=== PATIENT | male | born 1935 | race Caucasian/White ===

== ENCOUNTER → 2016-05-09 | Outpatient (CLI) | payer MEDICARE ==
[~2016-05-09] MED LIST: ASPIRIN81 M1 PO; COUMADIN2.5 MG PO; COUMADIN5 M2 PO; Diltiazem180 MG PO; FLOMAX0.4 MG PO; LIPITOR10 MG PO; LIPITOR20 MG PO; MIRALAX POWDER255 G1 PO; MOTRIN600 MG PO; NATURE'S BLEND F1 MG PO; NITROSTAT0.4 MG SL; NORVASC2.5 MG PO; PSYLLIUM SEED480 GM PO; SORINE PO; Synthroid,Levo75 MCG PO; VICODIN 5/500 505 MG PO; VITAMIN D32000 UNIT PO; WARFARIN2 MG PO; XANAX0.25 MG PO; ZOFRAN8 M1 PO
[2016-05-09 13:34] LABS: PROTHROMBIN TIME 22.1 SECONDS (9.0-12.4)
== END | disposition home or self-care (01) ==
LOC: LAB 12:34
PROVIDERS: Family Medicine
DX: I48.0 Paroxysmal atrial fibrillation (principal); C82.09 Follicular lymphoma grade I, extranodal and solid organ sites; R91.8 Other nonspecific abnormal finding of lung field; I21.29 ST elevation (STEMI) myocardial infarction involving other sites

== ENCOUNTER → 2016-07-12 | Outpatient (CLI) | payer MEDICARE ==
[2016-07-12 08:04] LABS: INTERNATIONAL NORM RATIO 2.1 (2.0-3.5); PROTHROMBIN TIME 23.2 SECONDS (9.0-12.4)
== END | disposition home or self-care (01) ==
LOC: LAB 07:20
PROVIDERS: Family Medicine
DX: C82.09 Follicular lymphoma grade I, extranodal and solid organ sites (principal); I48.0 Paroxysmal atrial fibrillation; I10 Essential (primary) hypertension; I21.3 ST elevation (STEMI) myocardial infarction of unspecified site; R91.8 Other nonspecific abnormal finding of lung field

== ENCOUNTER → 2016-08-11 | Outpatient (CLI) | payer MEDICARE ==
[2016-08-11 08:30] LABS: BASO % 0.9 % (0.0-1.0); EOS # 0.2 10*3/uL (0.0-0.4); EOS % 4.8 % (1.0-4.0); HEMATOCRIT 41.9 % (42.0-52.0); HEMOGLOBIN 14.3 g/dl (14.0-18.0); LYMPH # 0.3 10*3/uL (1.3-4.4); LYMPH % 7.1 % (27.0-41.0); MEAN CELL VOLUME 92.1 fl (80.0-94.0); MEAN CORPUSCULAR HGB 31.4 pg (27.0-31.0); MEAN CORPUSCULAR HGB CONC 34.1 g/dl (33.0-37.0); MEAN PLATELET VOLUME 9.4 fl (9.6-12.3); MONO # 0.6 10*3/uL (0.1-1.0); MONO % 16.5 % (3.0-9.0); NEUT # 2.5 10*3/uL (2.3-7.9); NEUT % 70.1 % (47.0-73.0); PLATELET COUNT AUTOMATED 138 10*3/uL (130-400); RED BLOOD COUNT 4.55 10*6/uL (4.50-5.90); RED CELL DISTRI WIDTH 13.3 % (0-14.5); WHITE BLOOD COUNT 3.5 10*3/uL (4.8-10.8)
[2016-08-11 08:56] LABS: INTERNATIONAL NORM RATIO 1.9 (2.0-3.5); PROTHROMBIN TIME 20.7 SECONDS (9.0-12.4)
[2016-08-11 09:00] LABS: ALBUMIN 3.9 gm/dl (3.1-4.5); BILIRUBIN, TOTAL 0.7 mg/dl (0.2-1.0); BUN 19 mg/dl (7-24); CARBON DIOXIDE 25 mmol/L (21-32); CHLORIDE 109 mmol/L (98-107); GLUCOSE 87 mg/dL (65-99); POTASSIUM 4.1 mmol/L (3.5-5.1); SODIUM 143 mmol/L (136-145)
[2016-08-11 09:08] LABS: ALKALINE PHOSPHATASE 104 U/L (45-117); CHOLESTEROL 147 mg/dL (<200); CPK 106 U/L (39-308); EST GLOM FILT AFRICAN AMERICAN > 60 ml/min; HDL CHOLESTEROL 41 mg/dl (40-60); LDH 273 U/L (87-241); LDL CHOLESTEROL 79 mg/dL (9-159); SGOT/AST 31 IU/L (3-35); SGPT/ALT 31 U/L (12-78); TOTAL PROTEIN 6.9 gm/dL (6.4-8.2); TRIGLYCERIDES 134 mg/dl (<150); URIC ACID 7.5 mg/dL (3.5-7.2); VLDL CHOLESTEROL 27 mg/dL (6-40)
[2016-08-12 06:10] LABS: TOTAL PROTEIN, SERUM 6.6 g/dL (6.0-8.5)
[2016-08-14 15:09] LABS: A/G RATIO 1.6 (0.7-1.7); ALBUMIN 4.1 g/dL (2.9-4.4); ALPHA-1-GLOBULIN 0.2 g/dL (0.0-0.4); BETA GLOBULIN 0.9 g/dL (0.7-1.3); GAMMA GLOBULIN 0.5 g/dL (0.4-1.8); GLOBULIN, TOTAL 2.5 g/dL (2.2-3.9); M-SPIKE Not Observed g/dL (Not Observed)
== END | disposition home or self-care (01) ==
LOC: LAB 07:55
PROVIDERS: Internal Medicine Medical Oncology
DX: C82.09 Follicular lymphoma grade I, extranodal and solid organ sites (principal); E78.00 Pure hypercholesterolemia, unspecified; E03.9 Hypothyroidism, unspecified; I48.0 Paroxysmal atrial fibrillation

== ENCOUNTER 2016-09-17 08:49 | Emergency (ER) | payer MEDICARE ==
[~2016-09-17] VITALS: Ht 175.2 cm; Wt 86.2 kg
[2016-09-17] MEDS ORDERED: BETAPACE PO (09:03)
== END 2016-09-17 11:00 | disposition home or self-care (01) ==
LOC: ED 08:49
DX: S90.32XA Contusion of left foot, initial encounter (principal); Z98.890 Other specified postprocedural states; Z90.89 Acquired absence of other organs; Z79.899 Other long term (current) drug therapy; Z79.82 Long term (current) use of aspirin; Z88.1 Allergy status to other antibiotic agents; Z79.01 Long term (current) use of anticoagulants; W18.09XA Striking against other object with subsequent fall, initial encounter; Y93.89 Activity, other specified; Y92.89 Other specified places as the place of occurrence of the external cause; Y99.9 Unspecified external cause status

== ENCOUNTER → 2016-10-12 | Outpatient (CLI) | payer MEDICARE ==
[~2016-10-12] MED LIST changes: +BETAPACE PO
[2016-10-12 10:53] LABS: INTERNATIONAL NORM RATIO 2.4 (2.0-3.5); PROTHROMBIN TIME 26.8 SECONDS (9.0-12.4)
== END | disposition home or self-care (01) ==
LOC: LAB 09:09
PROVIDERS: Family Medicine
DX: I48.0 Paroxysmal atrial fibrillation (principal)

== ENCOUNTER → 2016-11-06 | Outpatient (CLI) | payer MEDICARE ==
[2016-11-06 09:14] LABS: FREE T4 1.01 ng/dl (0.76-1.46); INTERNATIONAL NORM RATIO 2.7 (2.0-3.5); PROTHROMBIN TIME 30.5 SECONDS (9.0-12.4); THYROID STIM HORMONE (HS) 1.99 uIU/ml (0.358-4.75)
== END | disposition home or self-care (01) ==
LOC: LAB 08:11
PROVIDERS: Family Medicine; Internal Medicine Endocrinology, Diabetes & Metabolism
DX: I48.0 Paroxysmal atrial fibrillation (principal); E04.1 Nontoxic single thyroid nodule; E89.0 Postprocedural hypothyroidism

== ENCOUNTER → 2016-12-19 | Outpatient (CLI) | payer MEDICARE ==
[2016-12-19 08:56] LABS: BASO % 0.4 % (0.0-1.0); EOS # 0.3 10*3/uL (0.0-0.4); EOS % 5.4 % (1.0-4.0); HEMATOCRIT 43.2 % (42.0-52.0); HEMOGLOBIN 14.2 g/dl (14.0-18.0); LYMPH # 0.4 10*3/uL (1.3-4.4); LYMPH % 6.8 % (27.0-41.0); MEAN CELL VOLUME 93.5 fl (80.0-94.0); MEAN CORPUSCULAR HGB 30.7 pg (27.0-31.0); MEAN CORPUSCULAR HGB CONC 32.9 g/dl (33.0-37.0); MEAN PLATELET VOLUME 9.8 fl (9.6-12.3); MONO # 0.8 10*3/uL (0.1-1.0); MONO % 15.2 % (3.0-9.0); NEUT # 3.7 10*3/uL (2.3-7.9); NEUT % 71.6 % (47.0-73.0); PLATELET COUNT AUTOMATED 151 10*3/uL (130-400); RED BLOOD COUNT 4.62 10*6/uL (4.50-5.90); RED CELL DISTRI WIDTH 13.2 % (0-14.5); WHITE BLOOD COUNT 5.1 10*3/uL (4.8-10.8)
[2016-12-19 09:25] LABS: ALBUMIN 3.7 gm/dl (3.1-4.5); BUN 24 mg/dl (7-24); CHLORIDE 106 mmol/L (98-107); LDH 258 U/L (87-241); POTASSIUM 4.1 mmol/L (3.5-5.1); SGOT/AST 27 IU/L (3-35); SGPT/ALT 28 U/L (12-78); SODIUM 139 mmol/L (136-145); TOTAL PROTEIN 6.8 gm/dL (6.4-8.2); URIC ACID 7.2 mg/dL (3.5-7.2)
[2016-12-19 09:26] LABS: ALKALINE PHOSPHATASE 114 U/L (45-117)
[2016-12-19 11:16] LABS: INTERNATIONAL NORM RATIO 2.3 (2.0-3.5)
[2016-12-20 17:10] LABS: A/G RATIO 1.7 (0.7-1.7); ALPHA-1-GLOBULIN 0.2 g/dL (0.0-0.4); ALPHA-2-GLOBULIN 0.8 g/dL (0.4-1.0); BETA GLOBULIN 0.9 g/dL (0.7-1.3); GAMMA GLOBULIN 0.5 g/dL (0.4-1.8); GLOBULIN, TOTAL 2.3 g/dL (2.2-3.9); M-SPIKE Not Observed g/dL (Not Observed); TOTAL PROTEIN, SERUM 6.3 g/dL (6.0-8.5)
[2016-12-21 07:06] LABS: BETA-2 MICROGLOBULIN 010181 2.2 mg/L (0.6-2.4)
== END | disposition home or self-care (01) ==
LOC: LAB 08:25
PROVIDERS: Internal Medicine Medical Oncology
DX: C82.00 Follicular lymphoma grade I, unspecified site (principal); I48.0 Paroxysmal atrial fibrillation

== ENCOUNTER → 2017-01-15 | Outpatient (CLI) | payer MEDICARE ==
[2017-01-15 13:40] LABS: INTERNATIONAL NORM RATIO 2.5 (2.0-3.5)
[2017-01-15 13:47] LABS: THYROID STIM HORMONE (HS) 1.85 uIU/ml (0.358-4.75)
== END | disposition home or self-care (01) ==
LOC: LAB 12:49
PROVIDERS: Family Medicine
DX: Z12.5 Encounter for screening for malignant neoplasm of prostate (principal); E78.00 Pure hypercholesterolemia, unspecified; E03.9 Hypothyroidism, unspecified; I48.0 Paroxysmal atrial fibrillation

== ENCOUNTER → 2017-02-19 | Outpatient (CLI) | payer MEDICARE ==
[2017-02-19 10:46] LABS: BASO % 0.4 % (0.0-1.0); EOS # 0.3 10*3/uL (0.0-0.4); EOS % 4.8 % (1.0-4.0); HEMATOCRIT 40.3 % (42.0-52.0); HEMOGLOBIN 13.9 g/dl (14.0-18.0); LYMPH # 0.3 10*3/uL (1.3-4.4); LYMPH % 4.5 % (27.0-41.0); MEAN CELL VOLUME 91.4 fl (80.0-94.0); MEAN CORPUSCULAR HGB 31.5 pg (27.0-31.0); MEAN CORPUSCULAR HGB CONC 34.5 g/dl (33.0-37.0); MEAN PLATELET VOLUME 10.4 fl (9.6-12.3); MONO # 0.7 10*3/uL (0.1-1.0); MONO % 12.7 % (3.0-9.0); NEUT # 4.3 10*3/uL (2.3-7.9); NEUT % 76.7 % (47.0-73.0); PLATELET COUNT AUTOMATED 147 10*3/uL (130-400); RED BLOOD COUNT 4.41 10*6/uL (4.50-5.90); RED CELL DISTRI WIDTH 13.4 % (0-14.5); WHITE BLOOD COUNT 5.6 10*3/uL (4.8-10.8)
[2017-02-19 11:15] LABS: INTERNATIONAL NORM RATIO 2.5 (2.0-3.5)
[2017-02-19 11:16] LABS: ALBUMIN 3.7 gm/dl (3.1-4.5); ALKALINE PHOSPHATASE 109 U/L (45-117); BUN 22 mg/dl (7-24); CHLORIDE 105 mmol/L (98-107); CREATININE 1.16 mg/dL (0.70-1.30); POTASSIUM 3.8 mmol/L (3.5-5.1); SGOT/AST 29 IU/L (3-35); SGPT/ALT 40 U/L (12-78); SODIUM 138 mmol/L (136-145)
[2017-02-19 11:17] LABS: LDH 307 U/L (87-241)
== END | disposition home or self-care (01) ==
LOC: LAB 10:01
PROVIDERS: Family Medicine; Internal Medicine Medical Oncology
DX: C82.09 Follicular lymphoma grade I, extranodal and solid organ sites (principal); I48.0 Paroxysmal atrial fibrillation

== ENCOUNTER → 2017-03-26 | Outpatient (CLI) | payer MEDICARE ==
[2017-03-26 15:33] LABS: INTERNATIONAL NORM RATIO 2.3 (2.0-3.5)
== END | disposition home or self-care (01) ==
LOC: LAB 14:38
PROVIDERS: Family Medicine
DX: I48.0 Paroxysmal atrial fibrillation (principal)

== ENCOUNTER 2017-04-18 10:07 | Emergency (ER) | payer MEDICARE ==
[~2017-04-18] VITALS: Ht 177.8 cm; Wt 86.6 kg
[2017-04-18] MEDS ORDERED: CARDIZEM CD180 MG PO (10:17)
[2017-04-18 10:52] LABS: BASO % 0.2 % (0.0-1.0); EOS # 0.1 10*3/uL (0.0-0.4); EOS % 2.1 % (1.0-4.0); HEMATOCRIT 36.8 % (42.0-52.0); HEMOGLOBIN 12.4 g/dl (14.0-18.0); LYMPH # 0.3 10*3/uL (1.3-4.4); LYMPH % 4.5 % (27.0-41.0); MEAN CELL VOLUME 93.6 fl (80.0-94.0); MEAN CORPUSCULAR HGB 31.6 pg (27.0-31.0); MEAN CORPUSCULAR HGB CONC 33.7 g/dl (33.0-37.0); MEAN PLATELET VOLUME 9.1 fl (9.6-12.3); MONO # 0.8 10*3/uL (0.1-1.0); MONO % 14.6 % (3.0-9.0); NEUT # 4.4 10*3/uL (2.3-7.9); NEUT % 76.3 % (47.0-73.0); PLATELET COUNT AUTOMATED 209 10*3/uL (130-400); RED BLOOD COUNT 3.93 10*6/uL (4.50-5.90); RED CELL DISTRI WIDTH 13.3 % (0-14.5); WHITE BLOOD COUNT 5.8 10*3/uL (4.8-10.8)
[2017-04-18 11:08] LABS: ALBUMIN 3.2 gm/dl (3.1-4.5); ALKALINE PHOSPHATASE 88 U/L (45-117); BUN 22 mg/dl (7-24); CHLORIDE 104 mmol/L (98-107); CREATININE 1.09 mg/dL (0.70-1.30); POTASSIUM 3.8 mmol/L (3.5-5.1); SGOT/AST 25 IU/L (3-35); SGPT/ALT 30 U/L (12-78); SODIUM 137 mmol/L (136-145); TOTAL PROTEIN 6.5 gm/dL (6.4-8.2)
[2017-04-18 12:07] LABS: BILIRUBIN NEGATIVE (NEGATIVE); BLOOD NEGATIVE (NEGATIVE); CLARITY CLEAR (CLEAR); COLOR YELLOW (YELLOW); GLUCOSE NEGATIVE (NEGATIVE); KETONE NEGATIVE (NEGATIVE); NITRITE NEGATIVE (NEGATIVE); UROBILINOGEN 0.2 E.U./dl (0.2-1.0)
[2017-04-18 12:26] LABS: LEUKO ESTERASE NEGATIVE (NEGATIVE); PH 5.5 (5.0-9.0); SPECIFIC GRAVITY 1.015 (1.005-1.030)
[2017-04-18 12:49] LABS: BACTERIA TRACE; EPITHELIAL CELLS 0-2; MUCOUS 1+
== END 2017-04-18 12:42 | disposition home or self-care (01) ==
LOC: ED 10:07
PROVIDERS: Emergency Medicine
DX: R19.7 Diarrhea, unspecified (principal); Z98.890 Other specified postprocedural states; Z90.89 Acquired absence of other organs; Z79.899 Other long term (current) drug therapy; Z88.1 Allergy status to other antibiotic agents; Z79.82 Long term (current) use of aspirin; Z79.01 Long term (current) use of anticoagulants

== ENCOUNTER → 2017-04-19 | Outpatient (CLI) | payer MEDICARE ==
[~2017-04-19] MED LIST changes: +CARDIZEM CD180 MG PO
== END | disposition home or self-care (01) ==
LOC: LAB 10:43
DX: K52.9 Noninfective gastroenteritis and colitis, unspecified (principal)

== ENCOUNTER → 2017-04-23 | Outpatient (CLI) | payer MEDICARE ==
[~2017-04-23] MED LIST changes: +VANCOMYCIN HCL125 MG PO
== END | disposition home or self-care (01) ==
LOC: RESCLI 14:44
DX: A04.72 Enterocolitis due to Clostridium difficile, not specified as recurrent (principal); R51 Headache; I25.119 Atherosclerotic heart disease of native coronary artery with unspecified angina pectoris; I10 Essential (primary) hypertension; E03.9 Hypothyroidism, unspecified; I48.91 Unspecified atrial fibrillation; E55.9 Vitamin D deficiency, unspecified; E53.8 Deficiency of other specified B group vitamins; Z88.1 Allergy status to other antibiotic agents

== ENCOUNTER 2017-04-24 13:22 | Emergency (ER) | payer MEDICARE ==
[~2017-04-24] VITALS: Ht 175.2 cm; Wt 86.2 kg
[~2017-04-24 13:22] MED LIST changes: -VANCOMYCIN HCL125 MG PO
[2017-04-24] MEDS ORDERED: VANCOMYCIN HCL125 MG PO (13:45)
[2017-04-24 14:30] LABS: BASO % 0.6 % (0.0-1.0); EOS # 0.1 10*3/uL (0.0-0.4); HEMATOCRIT 37.9 % (42.0-52.0); HEMOGLOBIN 12.7 g/dl (14.0-18.0); LYMPH # 0.3 10*3/uL (1.3-4.4); LYMPH % 5.9 % (27.0-41.0); MEAN CORPUSCULAR HGB 30.8 pg (27.0-31.0); MEAN CORPUSCULAR HGB CONC 33.5 g/dl (33.0-37.0); MEAN PLATELET VOLUME 9.1 fl (9.6-12.3); MONO # 0.8 10*3/uL (0.1-1.0); MONO % 14.2 % (3.0-9.0); NEUT # 4.1 10*3/uL (2.3-7.9); NEUT % 76.2 % (47.0-73.0); PLATELET COUNT AUTOMATED 221 10*3/uL (130-400); RED BLOOD COUNT 4.12 10*6/uL (4.50-5.90); RED CELL DISTRI WIDTH 13.8 % (0-14.5); WHITE BLOOD COUNT 5.4 10*3/uL (4.8-10.8)
[2017-04-24 14:49] LABS: ALBUMIN 3.1 gm/dl (3.1-4.5); ALKALINE PHOSPHATASE 85 U/L (45-117); BUN 15 mg/dl (7-24); CHLORIDE 101 mmol/L (98-107); CREATININE 1.13 mg/dL (0.70-1.30); LIPASE 264 U/L (73-393); POTASSIUM 4.2 mmol/L (3.5-5.1); SGOT/AST 66 IU/L (3-35); SGPT/ALT 59 U/L (12-78); SODIUM 137 mmol/L (136-145); TOTAL PROTEIN 6.2 gm/dL (6.4-8.2)
[2017-04-24 15:24] LABS: INTERNATIONAL NORM RATIO 6.6 (2.0-3.5)
[2017-04-24 15:37] LABS: BILIRUBIN NEGATIVE (NEGATIVE); BLOOD TRACE-INTACT (NEGATIVE); CLARITY SL CLOUDY (CLEAR); COLOR YELLOW (YELLOW); GLUCOSE NEGATIVE (NEGATIVE); KETONE NEGATIVE (NEGATIVE); LEUKO ESTERASE NEGATIVE (NEGATIVE); NITRITE NEGATIVE (NEGATIVE); SPECIFIC GRAVITY <= 1.005 (1.005-1.030); UROBILINOGEN 0.2 E.U./dl (0.2-1.0)
[2017-04-24 15:51] LABS: BACTERIA TRACE
== END 2017-04-24 16:51 | disposition short-term general hospital (02) ==
LOC: ED 13:22
PROVIDERS: Nurse Practitioner Family
DX: I62.00 Nontraumatic subdural hemorrhage, unspecified (principal); Z79.82 Long term (current) use of aspirin; Z79.899 Other long term (current) drug therapy; Z79.01 Long term (current) use of anticoagulants; Z88.1 Allergy status to other antibiotic agents; Z98.890 Other specified postprocedural states

== ENCOUNTER → 2017-05-11 | Outpatient (CLI) | payer MEDICARE ==
[~2017-05-11] MED LIST changes: +VANCOMYCIN HCL125 MG PO
[2017-05-11 10:12] LABS: BASO % 0.8 % (0.0-1.0); EOS # 0.3 10*3/uL (0.0-0.4); HEMOGLOBIN 13.2 g/dl (14.0-18.0); LYMPH # 0.3 10*3/uL (1.3-4.4); LYMPH % 6.2 % (27.0-41.0); MEAN CELL VOLUME 93.3 fl (80.0-94.0); MEAN CORPUSCULAR HGB 31.6 pg (27.0-31.0); MEAN CORPUSCULAR HGB CONC 33.8 g/dl (33.0-37.0); MEAN PLATELET VOLUME 9.7 fl (9.6-12.3); MONO # 0.7 10*3/uL (0.1-1.0); MONO % 12.7 % (3.0-9.0); NEUT # 3.9 10*3/uL (2.3-7.9); NEUT % 74.1 % (47.0-73.0); PLATELET COUNT AUTOMATED 210 10*3/uL (130-400); RED BLOOD COUNT 4.18 10*6/uL (4.50-5.90); RED CELL DISTRI WIDTH 13.9 % (0-14.5); WHITE BLOOD COUNT 5.2 10*3/uL (4.8-10.8)
[2017-05-11 10:43] LABS: ALBUMIN 3.5 gm/dl (3.1-4.5); ALKALINE PHOSPHATASE 103 U/L (45-117); BUN 19 mg/dl (7-24); CHLORIDE 105 mmol/L (98-107); LDH 262 U/L (87-241); POTASSIUM 4.1 mmol/L (3.5-5.1); SGOT/AST 23 IU/L (3-35); SGPT/ALT 32 U/L (12-78); SODIUM 138 mmol/L (136-145); TOTAL PROTEIN 6.9 gm/dL (6.4-8.2); URIC ACID 6.4 mg/dL (3.5-7.2)
[2017-05-12 06:10] LABS: TOTAL PROTEIN, SERUM 6.3 g/dL (6.0-8.5)
[2017-05-12 07:06] LABS: IMMUNOGLOBULIN G, QNT 377 mg/dL (700-1600); IMMUNOGLOBULIN M, QNT 106 mg/dL (15-143)
[2017-05-14 15:08] LABS: A/G RATIO 1.3 (0.7-1.7); ALBUMIN 3.5 g/dL (2.9-4.4); ALPHA-1-GLOBULIN 0.3 g/dL (0.0-0.4); GAMMA GLOBULIN 0.5 g/dL (0.4-1.8); GLOBULIN, TOTAL 2.8 g/dL (2.2-3.9); M-SPIKE Not Observed g/dL (Not Observed)
== END | disposition home or self-care (01) ==
LOC: LAB 09:39
PROVIDERS: Internal Medicine Medical Oncology
DX: Z51.11 Encounter for antineoplastic chemotherapy (principal); R73.01 Impaired fasting glucose; C82.00 Follicular lymphoma grade I, unspecified site

== ENCOUNTER → 2017-05-16 | Outpatient (CLI) | payer MEDICARE ==
[2017-05-16 11:36] LABS: BASO % 0.3 % (0.0-1.0); EOS % 0.3 % (1.0-4.0); HEMATOCRIT 37.9 % (42.0-52.0); HEMOGLOBIN 12.4 g/dl (14.0-18.0); LYMPH # 0.4 10*3/uL (1.3-4.4); LYMPH % 5.7 % (27.0-41.0); MEAN CELL VOLUME 94.3 fl (80.0-94.0); MEAN CORPUSCULAR HGB 30.8 pg (27.0-31.0); MEAN CORPUSCULAR HGB CONC 32.7 g/dl (33.0-37.0); MEAN PLATELET VOLUME 10.3 fl (9.6-12.3); MONO # 0.8 10*3/uL (0.1-1.0); MONO % 11.3 % (3.0-9.0); NEUT # 5.7 10*3/uL (2.3-7.9); NEUT % 80.1 % (47.0-73.0); PLATELET COUNT AUTOMATED 165 10*3/uL (130-400); RED BLOOD COUNT 4.02 10*6/uL (4.50-5.90); RED CELL DISTRI WIDTH 14.5 % (0-14.5); WHITE BLOOD COUNT 7.1 10*3/uL (4.8-10.8)
[2017-05-16 12:00] LABS: ALBUMIN 3.5 gm/dl (3.1-4.5); ALKALINE PHOSPHATASE 86 U/L (45-117); BUN 24 mg/dl (7-24); CHLORIDE 109 mmol/L (98-107); CREATININE 1.02 mg/dL (0.70-1.30); POTASSIUM 3.4 mmol/L (3.5-5.1); SGOT/AST 19 IU/L (3-35); SGPT/ALT 25 U/L (12-78); SODIUM 141 mmol/L (136-145); TOTAL PROTEIN 6.4 gm/dL (6.4-8.2)
== END | disposition home or self-care (01) ==
LOC: LAB 10:36
PROVIDERS: Internal Medicine Nephrology
DX: R19.7 Diarrhea, unspecified (principal)

== ENCOUNTER → 2017-05-25 | Outpatient (CLI) | payer MEDICARE | END | disposition home or self-care (01) | LOC: LAB 10:39 | DX: K52.9 Noninfective gastroenteritis and colitis, unspecified (principal) ==

== ENCOUNTER → 2017-06-08 | Outpatient (CLI) | payer MEDICARE | END | disposition home or self-care (01) | LOC: LAB 09:32 | DX: C81.00 Nodular lymphocyte predominant Hodgkin lymphoma, unspecified site (principal); R19.7 Diarrhea, unspecified; Z86.19 Personal history of other infectious and parasitic diseases ==

== ENCOUNTER → 2017-06-12 | Outpatient (CLI) | payer MEDICARE | END | disposition home or self-care (01) | LOC: RESCLI 02:36 | DX: I10 Essential (primary) hypertension (principal); A04.72 Enterocolitis due to Clostridium difficile, not specified as recurrent; K21.9 Gastro-esophageal reflux disease without esophagitis; Z79.01 Long term (current) use of anticoagulants ==

== ENCOUNTER → 2017-07-02 | Outpatient (CLI) | payer MEDICARE ==
[2017-07-02 12:14] LABS: INTERNATIONAL NORM RATIO 2.1 (2.0-3.5)
== END | disposition home or self-care (01) ==
LOC: LAB 11:05
PROVIDERS: Family Medicine
DX: I48.0 Paroxysmal atrial fibrillation (principal)

== ENCOUNTER → 2017-07-17 | Outpatient (CLI) | payer MEDICARE | END | disposition home or self-care (01) | LOC: LAB 14:52 | DX: K52.9 Noninfective gastroenteritis and colitis, unspecified (principal) ==

== ENCOUNTER → 2017-08-01 | Outpatient (CLI) | payer MEDICARE ==
[2017-08-01 12:13] LABS: INTERNATIONAL NORM RATIO 8.9 (2.0-3.5)
== END | disposition home or self-care (01) ==
LOC: LAB 10:56
PROVIDERS: Family Medicine
DX: I48.0 Paroxysmal atrial fibrillation (principal)

== ENCOUNTER → 2017-08-03 | Outpatient (CLI) | payer MEDICARE ==
[2017-08-03 10:05] LABS: INTERNATIONAL NORM RATIO 3.9 (2.0-3.5)
== END | disposition home or self-care (01) ==
LOC: LAB 08:57
PROVIDERS: Family Medicine
DX: I48.0 Paroxysmal atrial fibrillation (principal)

== ENCOUNTER → 2017-08-06 | Outpatient (CLI) | payer MEDICARE ==
[2017-08-06 09:52] LABS: INTERNATIONAL NORM RATIO 1.2 (2.0-3.5)
== END | disposition home or self-care (01) ==
LOC: LAB 01:11 → RESCLI 01:11
PROVIDERS: Family Medicine
DX: I48.0 Paroxysmal atrial fibrillation (principal)

== ENCOUNTER → 2017-08-13 | Outpatient (CLI) | payer MEDICARE ==
[2017-08-13 10:16] LABS: HEMOGLOBIN 12.4 g/dl (14.0-18.0); MEAN CELL VOLUME 93.4 fl (80.0-94.0); MEAN CORPUSCULAR HGB 30.5 pg (27.0-31.0); MEAN CORPUSCULAR HGB CONC 32.6 g/dl (33.0-37.0); MEAN PLATELET VOLUME 11.3 fl (9.6-12.3); NUCLEATED RED BLOOD CELL 0.1 10*3/uL (0.0-0.0); NUCLEATED RED BLOOD CELL 0.6 % (0.0-0.0); PLATELET COUNT AUTOMATED 76 10*3/uL (130-400); RED BLOOD COUNT 4.07 10*6/uL (4.50-5.90); RED CELL DISTRI WIDTH 16.5 % (0-14.5); WHITE BLOOD COUNT 12.8 10*3/uL (4.8-10.8)
[2017-08-13 10:43] LABS: BASOPHILS 1 % (0-1); TOTAL CELLS COUNTED 100 #CELLS
[2017-08-13 10:45] LABS: DOHLE BODIES FEW; PLATELET SUFFICIENCY LOW (NORMAL); TOXIC GRANULATION SLIGHT
== END | disposition home or self-care (01) ==
LOC: LAB 09:40
PROVIDERS: Internal Medicine Cardiovascular Disease
DX: K62.5 Hemorrhage of anus and rectum (principal); K64.8 Other hemorrhoids

== ENCOUNTER → 2017-11-09 | Outpatient (CLI) | payer MEDICARE ==
[2017-11-09 16:21] LABS: HEMATOCRIT 31.7 % (42.0-52.0); HEMOGLOBIN 10.2 g/dl (14.0-18.0); MEAN CORPUSCULAR HGB 32.2 pg (27.0-31.0); MEAN CORPUSCULAR HGB CONC 32.2 g/dl (33.0-37.0); MEAN PLATELET VOLUME 10.3 fl (9.6-12.3); PLATELET COUNT AUTOMATED 124 10*3/uL (130-400); RED BLOOD COUNT 3.17 10*6/uL (4.50-5.90); RED CELL DISTRI WIDTH 13.9 % (0-14.5); WHITE BLOOD COUNT 3.3 10*3/uL (4.8-10.8)
[2017-11-09 16:28] LABS: INTERNATIONAL NORM RATIO 1.3 (2.0-3.5)
[2017-11-09 17:02] LABS: BASOPHILS 1 % (0-1); TOTAL CELLS COUNTED 100 #CELLS
[2017-11-09 17:03] LABS: BURR CELLS FEW; PLATELET SUFFICIENCY NORMAL (NORMAL); TOXIC GRANULATION SLIGHT
== END | disposition home or self-care (01) ==
LOC: LAB 15:41
PROVIDERS: Internal Medicine Medical Oncology
DX: C18.9 Malignant neoplasm of colon, unspecified (principal); Z79.01 Long term (current) use of anticoagulants

== ENCOUNTER 2018-01-09 21:22 | Emergency (ER) | payer MEDICARE ==
[~2018-01-09] VITALS: Ht 175.2 cm; Wt 81.6 kg
--- NOTE | ~2018-01-09 | EKG ---
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
--- NOTE | ~2018-01-09 | EKG ---
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
[2018-01-09 22:07] LABS: HEMATOCRIT 23.6 % (42.0-52.0); HEMOGLOBIN 8.1 g/dl (14.0-18.0); MEAN CELL VOLUME 93.3 fl (80.0-94.0); MEAN CORPUSCULAR HGB CONC 34.3 g/dl (33.0-37.0); MEAN PLATELET VOLUME 11.4 fl (9.6-12.3); PLATELET COUNT AUTOMATED 50 10*3/uL (130-400); RED BLOOD COUNT 2.53 10*6/uL (4.50-5.90); RED CELL DISTRI WIDTH 13.6 % (0-14.5)
[2018-01-09 22:16] LABS: INTERNATIONAL NORM RATIO 1.7 (2.0-3.5)
[2018-01-09 22:23] LABS: ALBUMIN 2.7 gm/dl (3.1-4.5); ALKALINE PHOSPHATASE 115 U/L (45-117); BUN 17 mg/dl (7-24); CHLORIDE 97 mmol/L (98-107); CREATININE 0.92 mg/dL (0.70-1.30); LIPASE 74 U/L (73-393); POTASSIUM 3.3 mmol/L (3.5-5.1); SGOT/AST 35 IU/L (3-35); SGPT/ALT 40 U/L (12-78); SODIUM 128 mmol/L (136-145); TOTAL PROTEIN 5.8 gm/dL (6.4-8.2)
[2018-01-09 22:27] LABS: TROPONIN I 0.196 ng/ml (<0.045)
[2018-01-09 22:48] LABS: ATYPICAL LYMPHS 8 % (0-0); TOTAL CELLS COUNTED 50 #CELLS
[2018-01-09 22:49] LABS: PLATELET SUFFICIENCY LOW (NORMAL); POLYCHROMASIA SLIGHT; TOXIC GRANULATION SLIGHT
[2018-01-09 22:52] LABS: WHITE BLOOD COUNT 0.5 10*3/uL (4.8-10.8)
[2018-01-10 00:28] LABS: BILIRUBIN NEGATIVE (NEGATIVE); BLOOD NEGATIVE (NEGATIVE); CLARITY CLEAR (CLEAR); COLOR YELLOW (YELLOW); GLUCOSE NEGATIVE (NEGATIVE); KETONE NEGATIVE (NEGATIVE); LEUKO ESTERASE NEGATIVE (NEGATIVE); NITRITE NEGATIVE (NEGATIVE); UROBILINOGEN 0.2 E.U./dl (0.2-1.0)
[2018-01-10 00:44] LABS: BACTERIA TRACE; WBC 0-2 wbc/hpf (0-5)
[2018-01-10] MEDS ORDERED: LONSURF 20 MG-1 EACH PO (09:33)
[2018-02-13] MEDS ORDERED: MIRTAZAPINE7.5 MG PO (10:18)
[2018-02-13] MEDS ORDERED: PACERONE100 MG PO (10:19)
[2018-02-13] MEDS ORDERED: CARVEDILOL6.25 MG PO (10:20)
[2018-02-13] MEDS ORDERED: LOMOTIL 60ML 6060 ML PO (10:21)
[2018-02-13] MEDS ORDERED: IMDUR SA30 MG PO (10:23)
[2018-02-13] MEDS ORDERED: ZESTRIL10 MG PO (10:24)
== END 2018-01-10 17:44 | disposition short-term general hospital (02) ==
LOC: ED 21:22
PROVIDERS: Emergency Medicine Emergency Medical Services
DX: E83.51 Hypocalcemia (principal); E87.6 Hypokalemia; E87.1 Hypo-osmolality and hyponatremia; D70.9 Neutropenia, unspecified; R50.81 Fever presenting with conditions classified elsewhere; C85.90 Non-Hodgkin lymphoma, unspecified, unspecified site; R79.89 Other specified abnormal findings of blood chemistry; I10 Essential (primary) hypertension; Z88.1 Allergy status to other antibiotic agents; Z79.899 Other long term (current) drug therapy; Z79.82 Long term (current) use of aspirin

== ENCOUNTER → 2018-01-31 | Outpatient (CLI) | payer MEDICARE ==
[~2018-01-31] MED LIST changes: +CARVEDILOL6.25 MG PO; +DILTIAZEM HCL90 MG PO; +HYDROCODONE-AC1 EAC2 PO; +IMDUR SA30 MG PO; +IMODIUM A-D2 M2 PO; +LACTINEX 0.2 MG1 TAB PO; +LEVAQUIN500 M2 PO; +LOMOTIL 60ML 6060 ML PO; +LONSURF 20 MG-1 EACH PO; +LOPERAMIDE HCL2 MG PO; +MARINOL2.5 M1 PO; +MIRTAZAPINE7.5 MG PO; +PACERONE100 MG PO; +REMERON15 M2 PO; +SERTRALINE HYDR25 MG PO; +VANCOMYCIN250 MG/2.5 PO; +XARE15TA PO; +ZESTRIL10 MG PO
[2018-01-31 12:07] LABS: BASO % 0.4 % (0.0-1.0); EOS # 0.1 10*3/uL (0.0-0.4); EOS % 1.4 % (1.0-4.0); HEMATOCRIT 32.7 % (42.0-52.0); HEMOGLOBIN 10.4 g/dl (14.0-18.0); LYMPH # 0.3 10*3/uL (1.3-4.4); MEAN CELL VOLUME 99.7 fl (80.0-94.0); MEAN CORPUSCULAR HGB 31.7 pg (27.0-31.0); MEAN CORPUSCULAR HGB CONC 31.8 g/dl (33.0-37.0); MEAN PLATELET VOLUME 9.4 fl (9.6-12.3); MONO # 1.3 10*3/uL (0.1-1.0); MONO % 15.4 % (3.0-9.0); NEUT # 6.3 10*3/uL (2.3-7.9); NEUT % 75.9 % (47.0-73.0); PLATELET COUNT AUTOMATED 317 10*3/uL (130-400); RED BLOOD COUNT 3.28 10*6/uL (4.50-5.90); RED CELL DISTRI WIDTH 16.1 % (0-14.5); WHITE BLOOD COUNT 8.3 10*3/uL (4.8-10.8)
[2018-01-31 12:35] LABS: ALBUMIN 3.3 gm/dl (3.1-4.5); ALKALINE PHOSPHATASE 206 U/L (45-117); BUN 20 mg/dl (7-24); CHLORIDE 103 mmol/L (98-107); CREATININE 1.07 mg/dL (0.70-1.30); POTASSIUM 4.3 mmol/L (3.5-5.1); SGOT/AST 37 IU/L (3-35); SGPT/ALT 29 U/L (12-78); SODIUM 137 mmol/L (136-145); TOTAL PROTEIN 6.7 gm/dL (6.4-8.2)
== END | disposition home or self-care (01) ==
LOC: LAB 11:22
PROVIDERS: Internal Medicine Medical Oncology
DX: T45.1X5A Adverse effect of antineoplastic and immunosuppressive drugs, initial encounter (principal); C18.9 Malignant neoplasm of colon, unspecified; K52.1 Toxic gastroenteritis and colitis

== ENCOUNTER 2018-02-13 13:46 | Inpatient (IN) | payer MEDICARE ==
[~2018-02-13] VITALS: Ht 175.3 cm; Wt 88.1 kg
[2018-02-13] VITALS (7 sets, daily range): BP systolic 82–116; BP diastolic 39–60
[~2018-02-13 13:46] MED LIST changes: -DILTIAZEM HCL90 MG PO; -HYDROCODONE-AC1 EAC2 PO; -IMODIUM A-D2 M2 PO; -LACTINEX 0.2 MG1 TAB PO; -LEVAQUIN500 M2 PO; -LOPERAMIDE HCL2 MG PO; -MARINOL2.5 M1 PO; -REMERON15 M2 PO; -SERTRALINE HYDR25 MG PO; -VANCOMYCIN250 MG/2.5 PO; -XARE15TA PO
[2018-02-13] MEDS ORDERED: ASPIRIN81 M1 PO (18:11)
[2018-02-13] MEDS ORDERED: XANAX0.25 MG PO (18:11)
[2018-02-13] MEDS ORDERED: XARE15TA PO (18:12)
[2018-02-13 20:41] LABS: ALBUMIN 2.6 gm/dl (3.1-4.5); CREATININE 1.47 mg/dL (0.70-1.30); PHOSPHOROUS 3.5 mg/dL (2.5-4.9); POTASSIUM 4.1 mmol/L (3.5-5.1); TOTAL PROTEIN 5.6 gm/dL (6.4-8.2)
[2018-02-14] VITALS: BP 137/73
[2018-02-14 07:00] LABS: ALBUMIN 2.4 gm/dl (3.1-4.5); ALKALINE PHOSPHATASE 155 U/L (45-117); BUN 29 mg/dl (7-24); CHLORIDE 106 mmol/L (98-107); CREATININE 1.14 mg/dL (0.70-1.30); FREE T4 1.08 ng/dl (0.76-1.46); PHOSPHOROUS 2.8 mg/dL (2.5-4.9); POTASSIUM 3.9 mmol/L (3.5-5.1); SGOT/AST 37 IU/L (3-35); SGPT/ALT 27 U/L (12-78); SODIUM 133 mmol/L (136-145); TOTAL PROTEIN 5.4 gm/dL (6.4-8.2)
[2018-02-14 07:13] LABS: ACT PARTIAL THROMBO TIME 28.9 SECONDS (20.8-31.5); INTERNATIONAL NORM RATIO 1.2 (2.0-3.5)
[2018-02-14 07:14] LABS: MEAN CELL VOLUME 96.7 fl (80.0-94.0); MEAN CORPUSCULAR HGB 31.7 pg (27.0-31.0); MEAN CORPUSCULAR HGB CONC 32.8 g/dl (33.0-37.0); MEAN PLATELET VOLUME 10.6 fl (9.6-12.3); NUCLEATED RED BLOOD CELL 0.9 % (0.0-0.0); RED BLOOD COUNT 2.43 10*6/uL (4.50-5.90); RED CELL DISTRI WIDTH 15.9 % (0-14.5); WHITE BLOOD COUNT 2.3 10*3/uL (4.8-10.8)
[2018-02-14 07:20] LABS: HEMATOCRIT 23.5 % (42.0-52.0); HEMOGLOBIN 7.7 g/dl (14.0-18.0); PLATELET COUNT AUTOMATED 95 10*3/uL (130-400)
[2018-02-14 08:02] LABS: VITAMIN D, 25-HYDROXY 22.4 ng/mL (30-100)
[2018-02-14 08:07] LABS: TOTAL CELLS COUNTED 100 #CELLS
[2018-02-14 08:08] LABS: PLATELET SUFFICIENCY LOW (NORMAL); POLYCHROMASIA SLIGHT
[2018-02-14 08:09] LABS: ROULEAUX SLIGHT
[2018-02-14 12:00] VITALS: BP 107/50
[2018-02-14 16:00] VITALS: BP 115/54
[2018-02-14 20:00] VITALS: BP 105/51
[2018-02-15] VITALS: BP 94/47
[2018-02-15 08:00] VITALS: BP 104/62
[2018-02-15 11:08] LABS: HEMATOCRIT 23.6 % (42.0-52.0); HEMOGLOBIN 7.9 g/dl (14.0-18.0); MEAN CELL VOLUME 97.1 fl (80.0-94.0); MEAN CORPUSCULAR HGB 32.5 pg (27.0-31.0); MEAN CORPUSCULAR HGB CONC 33.5 g/dl (33.0-37.0); MEAN PLATELET VOLUME 10.2 fl (9.6-12.3); PLATELET COUNT AUTOMATED 97 10*3/uL (130-400); RED BLOOD COUNT 2.43 10*6/uL (4.50-5.90); RED CELL DISTRI WIDTH 16.2 % (0-14.5); WHITE BLOOD COUNT 3.3 10*3/uL (4.8-10.8)
[2018-02-15 11:27] LABS: DOHLE BODIES MODERATE; OVALOCYTES FEW; PLATELET SUFFICIENCY LOW (NORMAL); POLYCHROMASIA SLIGHT; TOTAL CELLS COUNTED 100 #CELLS; TOXIC GRANULATION MODERATE
[2018-02-15 11:31] LABS: CHLORIDE 107 mmol/L (98-107); CREATININE 1.04 mg/dL (0.70-1.30); POTASSIUM 3.7 mmol/L (3.5-5.1); SODIUM 137 mmol/L (136-145)
[2018-02-15 11:35] LABS: BUN 19 mg/dl (7-24)
[2018-02-15 12:00] VITALS: BP 107/50
[2018-02-15 16:00] VITALS: BP 124/60
[2018-02-15 20:00] VITALS: BP 129/61
[2018-02-16] VITALS: BP 93/42
[2018-02-16 00:58] VITALS: BP 118/64
[2018-02-16 06:44] LABS: HEMATOCRIT 21.5 % (42.0-52.0); HEMOGLOBIN 7.2 g/dl (14.0-18.0); MEAN CELL VOLUME 97.3 fl (80.0-94.0); MEAN CORPUSCULAR HGB 32.6 pg (27.0-31.0); MEAN CORPUSCULAR HGB CONC 33.5 g/dl (33.0-37.0); MEAN PLATELET VOLUME 10.6 fl (9.6-12.3); PLATELET COUNT AUTOMATED 88 10*3/uL (130-400); RED BLOOD COUNT 2.21 10*6/uL (4.50-5.90); RED CELL DISTRI WIDTH 16.6 % (0-14.5); WHITE BLOOD COUNT 3.5 10*3/uL (4.8-10.8)
[2018-02-16 07:04] LABS: ALBUMIN 2.4 gm/dl (3.1-4.5); ALKALINE PHOSPHATASE 179 U/L (45-117); BUN 13 mg/dl (7-24); CHLORIDE 107 mmol/L (98-107); CREATININE 0.89 mg/dL (0.70-1.30); POTASSIUM 3.7 mmol/L (3.5-5.1); SGOT/AST 60 IU/L (3-35); SGPT/ALT 51 U/L (12-78); SODIUM 137 mmol/L (136-145); TOTAL PROTEIN 5.1 gm/dL (6.4-8.2)
[2018-02-16 07:27] LABS: BASOPHILS 1 % (0-1); DOHLE BODIES MODERATE; OVALOCYTES FEW; PLATELET SUFFICIENCY LOW (NORMAL); POLYCHROMASIA SLIGHT; TOTAL CELLS COUNTED 100 #CELLS; TOXIC GRANULATION MODERATE
[2018-02-16 08:00] VITALS: BP 117/70
[2018-02-16 12:00] VITALS: BP 109/54
[2018-02-16 16:00] VITALS: BP 115/66
[2018-02-16 20:00] VITALS: BP 106/58
[2018-02-17] VITALS: BP 95/54
[2018-02-17 08:00] VITALS: BP 128/73
[2018-02-17 12:00] VITALS: BP 158/84
[2018-02-17 13:48] LABS: HEMATOCRIT 22.6 % (42.0-52.0); HEMOGLOBIN 7.5 g/dl (14.0-18.0); MEAN CELL VOLUME 96.6 fl (80.0-94.0); MEAN CORPUSCULAR HGB 32.1 pg (27.0-31.0); MEAN CORPUSCULAR HGB CONC 33.2 g/dl (33.0-37.0); MEAN PLATELET VOLUME 10.4 fl (9.6-12.3); PLATELET COUNT AUTOMATED 92 10*3/uL (130-400); RED BLOOD COUNT 2.34 10*6/uL (4.50-5.90); RED CELL DISTRI WIDTH 16.5 % (0-14.5)
[2018-02-17 14:23] LABS: PLATELET SUFFICIENCY LOW (NORMAL); TOTAL CELLS COUNTED 100 #CELLS
[2018-02-17 14:26] LABS: SCHISTOCYTES FEW
[2018-02-17 14:27] LABS: OVALOCYTES FEW
[2018-02-17 14:28] LABS: DOHLE BODIES MODERATE; TOXIC GRANULATION MODERATE
[2018-02-17 16:00] VITALS: BP 96/50
[2018-02-17 20:00] VITALS: BP 107/53
[2018-02-18] VITALS: BP 102/58
[2018-02-18 08:00] VITALS: BP 107/55
[2018-02-18 12:00] VITALS: BP 90/56
[2018-02-18 16:00] VITALS: BP 92/50
[2018-02-18 20:00] VITALS: BP 97/52
[2018-02-18 22:00] VITALS: BP 102/58
[2018-02-19] VITALS: BP 98/52
[2018-02-19 08:00] VITALS: BP 110/72
[2018-02-19] MEDS ORDERED: LEVAQUIN500 M2 PO (11:53)
[2018-02-19] MEDS ORDERED: LOPERAMIDE HCL2 MG PO (11:53)
[2018-02-19] MEDS ORDERED: MIRTAZAPINE7.5 MG PO (11:53)
[2018-02-19] MEDS ORDERED: XARE15TA PO (11:53)
[2018-02-19] MEDS ORDERED: LOMOTIL 60ML 6060 ML PO (11:53)
[2018-02-19] MEDS ORDERED: MARINOL2.5 M1 PO (11:53)
[2018-02-19 12:00] VITALS: BP 96/45
== END 2018-02-19 13:30 | disposition hospice, home (50) | DRG 682 ==
LOC: ED 13:46 → 4E 16:09 → EDHOLD 16:09 → 4E 16:31
PROVIDERS: Family Medicine; Internal Medicine; Internal Medicine Nephrology
DX: N17.0 Acute kidney failure with tubular necrosis (principal); E43 Unspecified severe protein-calorie malnutrition; C78.7 Secondary malignant neoplasm of liver and intrahepatic bile duct; C18.9 Malignant neoplasm of colon, unspecified; E87.1 Hypo-osmolality and hyponatremia; C79.51 Secondary malignant neoplasm of bone; R19.7 Diarrhea, unspecified; F41.9 Anxiety disorder, unspecified; I10 Essential (primary) hypertension; D53.9 Nutritional anemia, unspecified; E86.0 Dehydration; E87.6 Hypokalemia; R73.9 Hyperglycemia, unspecified; D70.9 Neutropenia, unspecified; D69.6 Thrombocytopenia, unspecified; R91.8 Other nonspecific abnormal finding of lung field; I48.0 Paroxysmal atrial fibrillation; I25.10 Atherosclerotic heart disease of native coronary artery without angina pectoris; E55.9 Vitamin D deficiency, unspecified; E53.8 Deficiency of other specified B group vitamins; N40.0 Benign prostatic hyperplasia without lower urinary tract symptoms; J40 Bronchitis, not specified as acute or chronic; Z95.5 Presence of coronary angioplasty implant and graft; Z82.49 Family history of ischemic heart disease and other diseases of the circulatory system; Z88.1 Allergy status to other antibiotic agents; Z92.21 Personal history of antineoplastic chemotherapy; Z91.81 History of falling; Z79.82 Long term (current) use of aspirin; Z79.899 Other long term (current) drug therapy; Z85.72 Personal history of non-Hodgkin lymphomas; Z68.28 Body mass index [BMI] 28.0-28.9, adult

== ENCOUNTER → 2018-02-13 | Outpatient (CLI) | payer MEDICARE ==
[2018-02-13 13:23] LABS: HEMATOCRIT 33.5 % (42.0-52.0); HEMOGLOBIN 11.2 g/dl (14.0-18.0); MEAN CELL VOLUME 95.4 fl (80.0-94.0); MEAN CORPUSCULAR HGB 31.9 pg (27.0-31.0); MEAN CORPUSCULAR HGB CONC 33.4 g/dl (33.0-37.0); NUCLEATED RED BLOOD CELL 1.3 % (0.0-0.0); PLATELET COUNT AUTOMATED 71 10*3/uL (130-400); RED BLOOD COUNT 3.51 10*6/uL (4.50-5.90); RED CELL DISTRI WIDTH 16.1 % (0-14.5)
[2018-02-13 13:40] LABS: TOTAL CELLS COUNTED 50 #CELLS
[2018-02-13 13:41] LABS: BURR CELLS MODERATE; DOHLE BODIES FEW; PLATELET SUFFICIENCY LOW (NORMAL); POLYCHROMASIA SLIGHT; TOXIC GRANULATION SLIGHT
[2018-02-13 13:44] LABS: WHITE BLOOD COUNT 1.6 10*3/uL (4.8-10.8)
[2018-02-13 14:00] LABS: ALBUMIN 2.6 gm/dl (3.1-4.5); CREATININE 1.68 mg/dL (0.70-1.30); POTASSIUM 3.8 mmol/L (3.5-5.1); TOTAL PROTEIN 5.3 gm/dL (6.4-8.2)
== END | disposition home or self-care (01) ==
LOC: LAB 12:33
PROVIDERS: Internal Medicine Medical Oncology
DX: C18.9 Malignant neoplasm of colon, unspecified (principal); K52.1 Toxic gastroenteritis and colitis; T45.1X5A Adverse effect of antineoplastic and immunosuppressive drugs, initial encounter

== ENCOUNTER 2018-03-13 11:12 | Inpatient (IN) | payer MEDICARE ==
[~2018-03-13] VITALS: Ht 175.2 cm; Wt 86.3 kg
[2018-03-13] VITALS (16 sets, daily range): BP systolic 75–99; BP diastolic 44–60
--- NOTE | ~2018-03-13 | PR ---
[place], [place] PROGRESS NOTE NAME: MELITA SHIRLEY UNIT #: [id number] ROOM: 510 DOCTOR: CECILIO CRISTOBAL BIRTHDATE: [birth year] DOS: 03/22/2018 PULMONARY PROGRESS NOTE SUBJECTIVE: The patient was noted sitting comfortably at his bed at this time without any signs of acute distress. The patient states that he is breathing well, but complains of coughing. No symptoms of chest pain, fevers, chills or hemoptysis. OBJECTIVE: VITAL SIGNS: Temperature normal, respiratory rate 18, heart rate 99, blood pressure 94/60, pulse oxygen saturation on 2 liters nasal cannula at 95% saturation. HEENT: Head is atraumatic. Eyes nonicterus. NECK: Supple. CARDIOVASCULAR: S1 and S2 audible. LUNGS: Clear air without any signs of crackles at this time. ABDOMEN: Soft, nontender. EXTREMITIES: Without any acute edema. LABORATORY DATA: CBC on 03/22/2018; white blood cell count 10.8, hemoglobin 7.9 and platelet count 132. IMPRESSION: 1. Resolving acute bilateral pneumonia with Escherichia coli. 2. Clostridium difficile colitis. 3. History of metastatic gastrointestinal cancer. PLAN OF THERAPY: No changes in the plan of care at this time. Continue current therapy. The patient appears to be responding well to treatment. Palliative care consult was made by the primary care team recently. CECILIO CRISTOBAL DO [place], [place] PROGRESS NOTE NAME: MELITA SHIRLEY UNIT #: [id number] ROOM: 510 DOCTOR: CECILIO CRISTOBAL BIRTHDATE: [birth year] SARA DESAI MD CM:PNTRANS [id number] CECILIO CRISTOBAL 03/23/18 1610 interface
--- NOTE | ~2018-03-13 | PR ---
[place], [place] PROGRESS NOTE NAME: MELITA SHIRLEY [facility] #: [id number] UNIT #: [id number] ROOM: [facility] DOCTOR: ROBB JIMÉNEZ MD BIRTHDATE: [birth year] DOS: 03/15/2018 SUBJECTIVE: The patient was seen at his bedside in the intensive care unit today 03/15/2018 with multiple family members in attendance. He is an 82-year-old man who has a history of paroxysmal atrial fibrillation and atherosclerotic heart disease. 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 He presented to the hospital on this occasion with intractable diarrhea and cough along with dyspnea and weakness. He was found to be in atrial fibrillation with a rapid ventricular response and we were asked to assist in his care. His notes that a few months ago, he did have an intracranial hemorrhage. During that hospitalization, he developed unstable angina and did have a catheterization with angioplasty and stenting. This all occurred at the [facility] in [place] and details are not currently available. While he was there, he did have atrial fibrillation and was placed on amiodarone instead of his sotalol. This has controlled his rhythm for the most part. Since he has been in the hospital here, he has been placed on antibiotic therapy. His blood culture is positive for E. coli as is a urine culture. These are being treated with appropriate antibiotics and his symptoms have improved. From a cardiac standpoint, he was placed on the amiodarone drip and his heart rate has been controlled. He did spontaneously convert to sinus rhythm. He does remain on rivaroxaban for stroke prophylaxis. PHYSICAL EXAMINATION: VITAL SIGNS: Today, his pulse is 78 and regular, blood pressure is 140/87. He is afebrile. NECK: Supple. He has no jugular distention. Carotids are full. LUNGS: Respirations are unlabored. Chest is clear. HEART: Has a regular rhythm. He has a fourth heart sound, but no third heart sound. ABDOMEN: Soft and normally active. EXTREMITIES: Showed no edema. LABORATORY DATA: Hemoglobin is 8.4, white count 10,600, platelet count 181,000. Sodium 136, potassium 3.3, BUN 25, creatinine 1.02. IMPRESSION: 1. Paroxysmal atrial fibrillation. 2. Atherosclerotic heart disease. The patient has no symptoms of angina at this time. 3. Pneumonia. 4. Gram-negative septicemia with Escherichia coli. 5. 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 6. Intractable diarrhea. PLAN: I would switch him from IV to oral amiodarone and increase the dose from 100 mg daily to 200 mg twice a day with food while we do this I would withhold digoxin and carvedilol. Given the severity of his underlying illnesses I think [place], [place] PROGRESS NOTE [id number] UNIT #: [id number] ROOM: [facility] DOCTOR: ROBB JIMÉNEZ MD BIRTHDATE: [birth year] that conservative cardiac care is most appropriate. We will continue to follow the patient with his other physicians and I thank the hospitalist service for asking our advice regarding his care. ROBB JIMÉNEZ MD CM:PNTRANS [id number] ROBB JIMÉNEZ MD 03/15/18 1000 interface
--- NOTE | ~2018-03-13 | PR ---
[place], [place] PROGRESS NOTE NAME: MELITA SHIRLEY [facility] #: [id number] UNIT #: [id number] ROOM: [facility] DOCTOR: RYLAND MUNOZVANESSAMARY BIRTHDATE: [birth year] DOS: 03/15/2018 HISTORY OF PRESENT ILLNESS: An 82-year-old patient who has presented with colonic metastatic disease to liver and bone, pneumonic infiltrate. The patient has had intense diarrhea over the past few days. The patient had to be admitted for definitive evaluation and stool studies. It came negative; however, pneumonic infiltration been addressed with antibiotic. His blood cultures, gram-negative bacilli, Escherichia coli is being addressed. We have already started him on Questran that has been a pack b.i.d. Since this morning, he has not had stooling any more despite the fact that he has had breakfast without any emesis. The patient has been at the hospice service which was converted to acute care again by family and in taking care of acute pneumonic issue as well and need of oxygen. His troponin has been elevated. His stool culture is negative. Urine culture, 50,000 bacteria. Latest CBC: White blood cell remains normal with H and H of 8 and 25, Comprehensive metabolic panel, GFR greater than 60. Potassium is supplemented. Liver function tests, alkaline phosphatase elevation. A CT scan of the chest has been done and detailed per CT; however, multifocal bilateral airspace disease and pneumonic infiltrate masses in the lung as large as 6.2 cm, cholelithiasis, all has been recognized. REVIEW OF SYSTEMS: HEENT: Denies double vision, blurred vision. RESPIRATORY: Admits to shortness of breath, on oxygen. CARDIOVASCULAR: Denies chest pain. DIGESTIVE SYSTEM: No hematemesis, no hematochezia. No emesis today. No diarrhea today. Actually, he has not had a BM for past several hours, PHYSICAL EXAMINATION: VITAL SIGNS: Stable. He appears to be less distressed today. He is on oxygen nasally. EYES: Pupils round and reactive. Mouth and buccal mucosa benign. NECK: Supple, no thyromegaly. CHEST: Diffuse rhonchi anteroposteriorly mixed with gargling upper respiratory secretions can be barely heard due to the presence of gargling in the background. ABDOMEN: Appears to be soft. No rebound tenderness. EXTREMITIES: Dry. IMPRESSION: Diarrhea could be multifactorial post-chemotherapy, post-antibiotic, possible viral, noninfectious. As far as bacterial or parasite is concerned, I am concerned that he has septicemia and then he needs more antibiotic possibility of developing superimposed C. diff colitis is also eminent. Other adjunctive diagnoses, metastatic colonic carcinoma to multiorgan pneumonia and diarrhea on the workup and supportive measures. [place], [place] PROGRESS NOTE NAME: MELITA SHIRLEY [place] UNIT #: [id number] ROOM: [facility] DOCTOR: EDYTA MARCELINO MD BIRTHDATE: [birth year] EDYTA MARCELINO MD CM:GARTH 29 [phone] EDYTA MARCELINO MD 03/15/182033 interface
--- NOTE | ~2018-03-13 | CON ---
[place], [place] REPORT OF CONSULTATION [id number] UNIT #: [id number] ROOM: [facility] DOCTOR: SARA RUIZ MD BIRTHDATE: [birth year] DOS: 03/14/2018 CONSULTATION REQUESTED BY: Hospitalist service. REASON FOR CONSULTATION: Assessment of current abnormal respiratory symptom and others. HISTORY OF PRESENT ILLNESS: The patient is an 82-year-old male who presented to the hospital and has been noted worsening of the diarrhea with progressive general weakness and fatigue. The patient has been treated with hospice care, which was rescinded by the patient and then admitted to the hospital. He has been also complaining of symptoms of cough, which has been noted intermittently with sputum expectoration moderate amount. He does have symptoms of shortness of breath that occurs with exertion as well. The patient denies symptoms of chest pain; however, noted with wheezing at times in the evening. The patient was noted with general weakness and could not walk as well. The patient's diarrhea has been noted several times in the day and the patient described it as not contain any blood in it. REVIEW OF SYSTEMS: CONSTITUTIONAL SYMPTOMS: Fatigue and noted any symptoms of fevers or chills. EYES: Denies burning, redness, or tenderness. EARS, NOSE, AND THROAT: Denies sore throat, hoarseness, otalgia, postnasal drainage or epistaxis. CARDIOVASCULAR SYSTEM: Denies anginal pain, edema or pain of the lower extremities. GASTROINTESTINAL: Noted several times generally not containing any blood ____. PAST MEDICAL HISTORY: 1. General weakness and fatigue with inability to walk secondary to progressive weakness reported by ____. 2. Current hypotension. 3. Past history of subdural hematoma, bilateral subdural hematoma. 4. Benign prostatic hypertrophy. 5. Vitamin D deficiency. SOCIAL HISTORY: The patient noted nonsmoker lifetime. There is history of illicit drug use, ____. PAST SURGICAL HISTORY: Reported as: 1. Surgery of the thyroid. 2. Cardiac coronary artery depression 3. ____. the patient noted with history of hypothyroid, on this admission were noted ____, levothyroxine, Mucinex, IV Zosyn, Xanax, IV Lasix, and other p.r.n. medications administration. PHYSICAL EXAMINATION: GENERAL: An 82-year-old white male patient appeared to be weak and fatigued currently lying in bed without any acute respiratory distress. Height of 5 feet 9 inches, weight of 168 pounds, BMI 24.8. [place], [place] REPORT OF CONSULTATION NAME: MELITA SHIRLEY UNIT #: [id number] ROOM: [facility] DOCTOR: LLOYD KENDALL MD,SARA BIRTHDATE: [birth year] VITAL SIGNS: For the patient which has been recorded shows the temperature was noted as normal, respiratory rate range between 21-28, heart rate 124-130 for the atrial fibrillation with rapid ventricular response, blood pressure ____. The pulse oxygen saturation recorded as ____ 96% saturation. HEAD, EYES, EARS, NOSE, AND THROAT: Examination shows head was atraumatic. Eyes: No icterus. Head was atraumatic. NECK: Supple. CARDIOVASCULAR SYSTEM: S1 and S2 audible. LUNGS: ____. ABDOMEN: ____. MUSCULOSKELETAL: Noted without any acute deformities. CENTRAL NERVOUS SYSTEM: Cranial nerves 2-12 intact. General weakness was noted. LABORATORY DATA: Lactic acid noted 1.5 on admission yesterday. PT/PTT yesterday noted with normal. PT/PTT 2.42. CBC on 03/13/2018, hemoglobin 8.7, hematocrit 25.6, WBC count normal, platelet count normal, 90% segmented. Glucose 128. ____ BUN 42, creatinine 37, glucose 114. Sodium 135. CBC that was done, hemoglobin 8.5 and 25.7, WBC count normal, platelet count was noted with evidence of infiltrate in the right lower lobe, which was visible. ____ on admission 3/4 culture so far been reported. The gram-negative bacilli isolation. ____ could be considered from the abdomen. IMPRESSION: 1. Coughing is better with a strong suspicion of acute pneumonia, bilateral lower lungs may be related to the aspiration. 2. General weakness and fatigue, multifactorial secondary to current ongoing illness as well with sepsis. 3. Recent diagnosis of metastatic lymphoma, which are noted to advance the patient recommended hospice care because of intolerance to the chemotherapy medications and the oral formulation. 4. 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 There was no evidence of Clostridium difficile colitis. 5. Intravascular volume depletion, acute kidney injury was noted as well. 6. The patient with anemia related to current malignancy. 7. Atrial fibrillation with rapid ventricular response as well. 8. Evaluation dominant most likely related to the malignancy. There were no clinical suspicion for the pulmonary embolism noted long-term anticoagulation, which is Xarelto. PLAN OF MANAGEMENT: The patient would be recommended CT scan of the chest and abdomen and pelvis to be performed. The vasopressor therapy if necessary and/or with intravenous for the managing and keeping the mean to 65 or greater. The patient's code status has been noted DNR-CC arrest, no intubation. Santamaria culture, the patient has been noted in progress. Follow the identification and sensitivity to current gram-negative organisms. Oxygen supplementation, maintain pulse ox 92% or greater. Monitor urinary output as well. Avoid excessive amount of fluid to prevent the fluid overload as well. For urinary output need to be maintained. Other supportive therapy, plan of management. Additional changes to be made based on progression of his current illness. [place], [place] REPORT OF CONSULTATION NAME: MELITA SHIRLEY UNIT #: [id number] ROOM: [facility] DOCTOR: SARA RUIZ MD BIRTHDATE: [birth year] Usual care. Supportive care, plan of management. Sputum for Gram stain and culture to be done. Bronchodilator to help mobilize secretions. The area management of atrial fibrillation with rapid ventricular response as well per Cardiology Services. The patient has been already assessed and managed by the GI services and Infectious Disease specialist, follow their recommendations of management. Pulmonary critical care evaluation and critical management today's visit was 38 minutes. SARA DESAI MD CM:CONSTR:REPORT OF CONSULTATION 1412 03/14/18 1620 interface
--- NOTE | ~2018-03-13 | PR ---
[place], [place] PROGRESS NOTE NAME: [id number] UNIT #: [id number] ROOM: 510 DOCTOR: LLOYD KENDALL MD,SARA BIRTHDATE: [birth year] DOS: 03/19/2018 PULMONARY PROGRESS NOTE SUBJECTIVE: The patient is noted comfortable at this time, resting on the bed, noted with some cough. There was no sputum expectoration, fever or chills. The repeat stool for C. diff toxin was noted positive because of diarrhea, which has been recurred. There was no symptoms of abdominal pain reported. OBJECTIVE: VITAL SIGNS: Normal temperature, respiratory rate 20, heart rate 72, blood pressure 122/60. Pulse oxygen saturation of the patient was recorded as 95% saturation on 4 liters cannula. HEENT: Head was atraumatic. Eyes nonicterus. CARDIOVASCULAR: S1 and S2 audible. LUNGS: Without any wheeze or crackles. ABDOMEN: Soft, nontender. Bowel sounds present. EXTREMITIES: No acute edema. IMPRESSION: 1. Clostridium difficile colitis. 2. Acute pneumonia with Pseudomonas aeruginosa. 3. Bacteremia with Escherichia coli and Escherichia coli urinary tract infection. 4. History of advanced metastatic gastrointestinal malignancy. PLAN OF MANAGEMENT: No change in plan of care. Continue the recommendation of antibiotic per Infectious Disease specialist. Continue other therapy and plan of management. Titrate oxygen supplementation to maintain pulse ox 92% or greater. Overall prognosis of the patient still remains guarded. SARA DESAI MD CM:PNTRANS [id number] SARA KENDALL MD 03/19/18 1530 interface
--- NOTE | ~2018-03-13 | PR ---
[place], [place] PROGRESS NOTE [id number] UNIT #: [id number] ROOM: 510 DOCTOR: ZEKE PERRYJULY BIRTHDATE: [birth year] DOS: 03/23/2018 SUBJECTIVE: The patient is an 82-year-old male with metastatic colon CA. He is being followed for an E. coli septicemia with urinary source as well as C. diff. He is alert, seems fairly oriented. Denies any pain currently. He did have his Álvarez catheter out earlier, did not have any dysuria with urination. He does have a urinal propped currently. No nausea or vomiting. Stools are improving. He continues with a productive cough, though his sputum is clearing. He states it is much guard dance hall in appearance. No fevers or chills overnight. No nausea or vomiting. No abdominal cramps. LABORATORY DATA: No new labs today. CURRENT MEDICATIONS: Dilaudid, Everetts, Xanax, Cardizem, Questran, Lactinex, vancomycin, Zosyn, Zoloft, aspirin, Cordarone, DuoNeb, Xarelto, Synthroid, Cepacol, Remeron, Mucinex, Zofran, Tylenol. PHYSICAL EXAMINATION: VITAL SIGNS: Temperature 97.5, pulse 108, respirations 20, BP 109/71.: GENERAL: Alert and oriented, 82-year-old male, in no acute distress. HEAD, EYES, EARS, NOSE AND THROAT: Normocephalic. No thrush. LUNGS: Rales at bilateral bases. Respirations even and unlabored. HEART: Irregular rhythm. No murmur appreciated. ABDOMEN: Soft, nontender. EXTREMITIES: Trace edema to bilateral lower extremities. SKIN: Warm, dry, free of rashes. Right chest MediPort is accessed. ASSESSMENT: Escherichia coli bacteremia, urinary tract infection as well as Clostridium difficile colitis and metastatic colon cancer with multiple liver lesions on CAT scan. PLAN: Continue the oral vancomycin as well as the Zosyn. ADDENDUM I agree with the assessment and plan made by the nurse practitioner, Elisa Alanis. I reviewed the labs and imaging and made the necessary changes in the note. ELISA ALANIS CNP [place], [place] PROGRESS NOTE NAME: MELITA SHIRLEY UNIT #: [id number] ROOM: 510 DOCTOR: ZEKE PERRYJULY BIRTHDATE: [birth year] Carmen MD Tiesha CM:GARTH [id number] JULY ZEKE PERRY 03/26/18 0507 interface
--- NOTE | ~2018-03-13 | PR ---
[place], [place] PROGRESS NOTE NAME: [facility]IR[facility] [id number] UNIT #: [id number] ROOM: 510 DOCTOR: ROBB JIMÉNEZ MD BIRTHDATE: [birth year] DOS: 03/17/2018 CARDIOLOGY PROGRESS NOTE SUBJECTIVE: The patient was seen at his bedside today 03/17/2018 in the Intensive Care Unit with multiple family members in attendance. He is breathing more easily, although he still has a moist cough. He was found to have a pseudomonas pneumonia in addition to his E. coli urinary tract infection and bacteremia. His most recent blood cultures have been sterile thus far. His antibiotics are being adjusted by his element setter and Infectious Disease consultants. PHYSICAL EXAMINATION: VITAL SIGNS: Today, his pulse is 72 and regular, blood pressure 138/74. He is afebrile. He weighs 79.4 kg and has a body mass index 25.9. NECK: Supple. He has no jugular distention. Carotids are full. I heard no bruits. LUNGS: Respirations were unlabored. He does have crackles at the bases, especially on the left. HEART: Has a regular rhythm with an S4 gallop. ABDOMEN: Soft and normally active. EXTREMITIES: Showed no edema. LABORATORY DATA: Hemoglobin is 8.2, white count 13,500, platelet count 174,000. Sodium 140, potassium 3.7, BUN 19, and creatinine 0.72. IMPRESSION: 1. Paroxysmal atrial fibrillation. The patient has been in sinus rhythm for the last several days. 2. Atherosclerotic heart disease. The patient has no symptoms of angina at this time. 3. Mild elevation in troponin, probably due to tachycardia and atrial fibrillation (type 2 myocardial injury). 4. Pseudomonas pneumonia. 5. Gram-negative bacteremia with E. coli. 6. 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 PLAN: The patient remains stable from a cardiac standpoint. We will continue his current management and no further cardiac evaluation is planned. We will continue to monitor his symptoms, rhythm, and vital signs with his primary physician intermittently during his hospitalization. I thank the hospitalist physicians for asking our advice regarding his care. [place], [place] PROGRESS NOTE NAME: MELITA SHIRLEY UNIT #: [id number] ROOM: 510 DOCTOR: ROBB JIMÉNEZ MD BIRTHDATE: [birth year] ROBB JIMÉNEZ MD CM:PNTRANS [phone] ROBB JIMÉNEZ MD 03/17/181907 interface
--- NOTE | ~2018-03-13 | PR ---
[place], [place] PROGRESS NOTE [id number] UN[facility] #: [id number] ROOM: 510 DOCTOR: LLOYD KENDALL MD,SARA BIRTHDATE: [birth year] DOS: 03/21/2018 SUBJECTIVE: The patient noted comfortable at this time without any acute distress. No symptoms of chest pain, fever or chills or hemoptysis. No symptoms of nausea or vomiting. OBJECTIVE: VITAL SIGNS: Normal temperature, respiratory rate 16, heart rate 80, blood pressure 128/86 this morning. Pulse oxygen saturation recorded on 2 liters 96% saturation. HEENT: Examination shows head was atraumatic. Eyes nonicterus. NECK: Supple. CARDIOVASCULAR: S1, S2 is audible. LUNGS: Noted without any wheezing or crackles at the present time. ABDOMEN: Soft. Bowel sounds present. EXTREMITIES: Without any acute edema. LABORATORY DATA: Chest x-ray that was ordered yesterday, reports still not available from the radiology services. Chest x-ray personally reviewed from the PACS images showed resolving acute bilateral pulmonary infiltration at this time. IMPRESSION: 1. Resolving acute bilateral pneumonia with Escherichia coli. 2. Clostridium difficile colitis. 3. History of metastatic GI cancer. PLAN OF THERAPY: No changes in the plan of care at this time. Continue current therapy as in progress. The patient is responding to treatment and showing continued gradual improvement. SARA DESAI MD CM:PNTRANS [id number] SARA KENDALL MD 03/21/18 1225 interface
--- NOTE | ~2018-03-13 | PR ---
[place], [place] PROGRESS NOTE [id number] UNIT #: [id number] ROOM: 510 DOCTOR: EDYTA MARCELINO MD BIRTHDATE: [birth year] DOS: 03/20/2018 HISTORY OF PRESENT ILLNESS: An 82-year-old patient who presented with multiple medical issues among which was relentless diarrhea. He was eventually investigated and was found to have C. diff colitis. He is under treatment with vancomycin. His diarrhea frequency has resolved to about 2 BM today. His appetite has been reasonably okay for what his status is. He was in the hospitalist service. He was switched to acute care because of some concerns of the family that they wanted to make sure that he has been given adequate chance. PAST MEDICAL HISTORY: Subdural hematoma, prostatic hypertrophy, colon CA, metastasis to multiorgan and atrial fibrillation, on anticoagulant which was addressed, lymphoma, C. diff colitis, pneumonia infiltration. REVIEW OF SYSTEMS: HEENT: Denies double vision, blurred vision. RESPIRATORY: Admits to shortness of breath and cough. CARDIOVASCULAR: Denies chest pain. DIGESTIVE SYSTEM: Low appetite, diarrhea, C. diff colitis. PHYSICAL EXAMINATION: GENERAL: Frail patient. HEENT: Benign. NECK: Supple. LUNGS: Few scattered rhonchi. HEART: Atrial fibrillation, moderate ventricular response. ABDOMEN: Obese, soft. No hepato-organomegaly. Bowel sounds present. EXTREMITIES: Edema bilaterally. NEUROLOGIC: Alert, oriented to time, place, person. IMPRESSION: Metastatic carcinoma. PLAN AND DISCUSSION: C. diff colitis is being addressed. Supportive measures. Work in progress. Case discussed with the family. [place], [place] PROGRESS NOTE NAME: MELITA SHIRLEY UNIT #: [id number] ROOM: 510 DOCTOR: EDYTA MARCELINO MD BIRTHDATE: [birth year] EDYTA MARCELINO MD CM:PNTRANS 19 9 EDYTA MARCELINO MD 03/21/18519 interface
--- NOTE | ~2018-03-13 | EKG ---
[place], [place] ELECTROCARDIOGRAM REPORT NAME: MELITA SHIRLEY UNIT #: [id number] ROOM: 510 DOCTOR: NATALIA DRAFT REPORT BIRTHDATE: [birth year] [facility] Test Date: 2018-03-20 Test Time: 03:44:27 Pat Name: MELITA SHIRLEY Department: Room: 510 1 Gender: M [employer] Advisor: Sasha Silva : 1935 Requested By: LESTER GONZALEZ Order Number: [id number] Reading MD: Justin Nelson MD Measurements Intervals [place] Rate: 127 P: [place]: QRS: -30 QRSD: 94 T: 138 QT: 356 QTc: 518 Interpretive Statements Atrial fibrillation Inferior infarct, old Probable anteroseptal infarct, old Lateral leads are also involved Prolonged QT interval Baseline wander in lead(s) V6 Compared to ECG 03/15/2018 15:45:14 Prolonged QT interval now present Sinus rhythm no longer present Myocardial infarct finding still present Electronically Signed On 03-21-2018 17:43:33 PST by Justin Nelson MD CM:EKGRPT:ELECTROCARDIOGRAM REPORT [id number] LESTER GILL DRAFT REPORT LESTER GONZALEZ DO
--- NOTE | ~2018-03-13 | PR ---
[place], [place] PROGRESS NOTE NAME: MELITA SHIRLEY UNIT #: [id number] ROOM: 510 DOCTOR: CECILIO CRISTOBAL BIRTHDATE: [birth year] DOS: 03/19/2018 PULMONARY PROGRESS NOTE SUBJECTIVE: The patient was noted comfortable, sitting in his bed at this time without any signs of acute distress. The patient was alert. The patient states he feels symptoms have not changed much since yesterday and appears fatigued at this time. The patient does have mild shortness of breath and cough. OBJECTIVE: VITAL SIGNS: Temperature normal, respiratory rate 22, pulse 132, pulse ox saturation on 4 liters nasal cannula, 96%. HEENT: Head was atraumatic. Eyes nonicterus. NECK: Supple. CARDIOVASCULAR: S1, S2 audible. LUNGS: Bibasilar crackles, slight. ABDOMEN: Soft, nontender. EXTREMITIES: Without any acute edema. LABORATORY DATA: CBC on 03/19/2018: White blood cell count 12.5, hemoglobin 8.4, platelet count 170. CMP on 03/19/2018: BUN 22, creatinine 0.64, carbon dioxide 25, glucose 101. ASSESSMENT: 1. Ongoing bilateral pneumonia with Pseudomonas aeruginosa, currently being treated with IV Zosyn. 2. Clostridium difficile being treated with p.o. vancomycin 500 q.i.d. 3. Escherichia coli bacteremia, urinary tract infection, which is also being treated with IV Zosyn. PLAN OF TREATMENT: Continue bronchodilators, oxygen supplementation and extended infusion of IV Zosyn. Further changes in management will be made based upon changes in the patient's clinical status. CECILIO CRISTOBAL DO [place], [place] PROGRESS NOTE NAME: MELITA SHIRLEY UNIT #: [id number] ROOM: 510 DOCTOR: CECILIO CRISTOBAL BIRTHDATE: [birth year] SARA DESAI MD CM:PNGRCAY [id number] CECILIO CRISTOBAL 03/20/18 0215 interface
--- NOTE | ~2018-03-13 | PR ---
[place], [place] PROGRESS NOTE NAME: MELITA SHIRLEY [facility] #: [id number] UNIT #: [id number] ROOM: [facility] DOCTOR: LLOYD KENDALL MD,SARA BIRTHDATE: [birth year] DOS: 03/15/2018 PULMONARY PROGRESS NOTE SUBJECTIVE: The patient has been started on amiodarone for the medical management of atrial tachycardia, atrial fibrillation. The heart rate noted less than 100 at this time. He was also given digoxin intravenously yesterday as well. Respiratory petersen, the patient has been noted stable with a cough, which has been noted nonproductive. Denies symptoms of abdominal pain, nausea, vomiting, diarrhea, or abdominal pain. The patient denies symptoms of fever or chills. Denies symptoms of hematemesis, melena, or hematochezia. The diarrhea has been reported intermittently. REVIEW OF SYSTEMS: Remaining systems were reviewed, they were noted all negative. The past, family and social history, and surgical history all remains unchanged, which were dictated in yesterday's consultation. PHYSICAL EXAMINATION: VITAL SIGNS: Blood pressure was recorded as 140/87-107/50. Respiratory rate ranged between 20-29. Heart rate 78-111. The temperature 100.8 degree Fahrenheit, normal temperature. HEENT: Examination shows head was atraumatic. Eyes nonicterus. NECK: Supple. CARDIOVASCULAR: S1, S2 is audible. LUNGS: Noted without any wheezing or crackles at the present time. ABDOMEN: Soft, nontender. Bowel sounds present. EXTREMITIES: The patient was noted without any acute edema. MUSCULOSKELETAL: Noted without any acute deformities. CENTRAL NERVOUS SYSTEM: The patient reported generalized weakness, but there were no focal neurologic deficits. VISIBLE SKIN: No lesions or rashes. LABORATORY DATA: The CBC that was done this morning; WBC count normal, hemoglobin 8.4, hematocrit 25.8, platelet count was normal. The blood culture were noted with growth of E. coli in all of the bottles, which were noted pansensitive species except the fluoroquinolones. The similar organism was also isolated from the urine with E. coli, exact same sensitivity. The cultures of the stool were noted so far negative. CMP this morning; BUN 25, creatinine 1.02, potassium 3.3, albumin 1.7. CT scan of the chest that was done without contrast yesterday was reviewed and evidence of ground-glass opacity noted mainly in the right upper lung. The patient was also noted with an area of large consolidation that has been present in the lungs, predominant involvement of the right and the left lower lobe. Also, small consolidation noted in the lingula and the right middle lobe as well. There were no visible lymphadenopathy. The CT scan of the abdomen was described with multiple irregular, lobulated, hypodense mass in the liver, largest one 16.1 x 5.8 cm in size noted in the left hepatic lobe. Fluids were described throughout the colon. Small amount of fluid was also noted in the endobronchial tree. [place], [place] PROGRESS NOTE NAME: MELITA SHIRLEY UNIT #: [id number] ROOM: [facility] DOCTOR: LLOYD KENDALL MD,SARA BIRTHDATE: [birth year] IMPRESSION: The patient who has been currently noted with metastatic nonmalignant lymphoma with intolerance to the chemotherapy currently noted with: 1. Generalized weakness and fatigue. Acute sepsis was also noted, septic shock and acute kidney injury. 2. Diarrhea. 3. Acute multilobar pneumonia. 4. Ground-glass opacity in the upper lungs, maybe representing the infection as well in addition to consolidation. The other differential of interstitial pneumonitis would be considered. 5. Hyperkalemia was also noted. 6. Hypoalbuminemia. 7. Secretions in endobronchial tree might be suggestive of retained secretions in the airway with inability to cough because of overall generalized weakness. PLAN OF MANAGEMENT: At this time, the patient's antibiotic will be directed with use of penicillin related to medication. The patient was started on IV Unasyn by the Infectious Disease that should continue treating pneumonia, which would be considered most likely similar organism. Clinical course will be monitored. Monitoring the leukocytosis, other therapy, plan of management. Bronchodilators and oxygen supplementation. No intubation. Code status was noted. Resuscitative measures will be given for the hypertension as necessary. Symptomatic management of diarrhea, most likely related to the current malignancy in the abdomen, possibly would be considered. Other additional treatment changes recommended based on progression of the illness. Collect the sputum for Gram stain and culture if the patient is able to expectorate sputum as well. Supportive plan of management. Oxygen supplementation to maintain a pulse ox 92% or greater. SARA DESAI MD CM:PNTRANS [phone] SARA KENDALL MD 03/16/18 0546 interface
--- NOTE | ~2018-03-13 | PR ---
[place], [place] PROGRESS NOTE [id number] UNIT #: [id number] ROOM: 510 DOCTOR: LLOYD KENDALL MD,SARA BIRTHDATE: [birth year] DOS: 03/23/2018 SUBJECTIVE: The patient was noted comfortable at this time, resting in the bed at this time. Denies any coughing, chest pain or sputum expectoration or any abdominal pain. OBJECTIVE: VITAL SIGNS: Normal temperature, respiratory rate 18, heart rate 105, blood pressure 118/70. The pulse oxygen saturation on 2 liters nasal cannula 97% saturation. HEENT: Examination shows no acute change. NECK: Supple. CARDIOVASCULAR: S1, S2 is audible. LUNGS: The patient was noted crackles in the left lung. There was no wheezing. ABDOMEN: Soft, nontender. EXTREMITIES: Without any acute edema. IMPRESSION: 1. Acute pneumonia, which has been improving with Pseudomonas aeruginosa. 2. Clostridium difficile colitis was also noted as well. PLAN OF MANAGEMENT: Continue antibiotics, bronchodilators. Obtain a chest x-ray patient tomorrow. The patient to reassess the further progression of the pneumonia, which seemed to be resolving with the last visit. Other supportive therapy, plan of management, and care plan. SARA DESAI MD CM:PNTRANS [id number] SARA KENDALL MD 03/23/18 2352 interface
--- NOTE | ~2018-03-13 | PR ---
[place], [place] PROGRESS NOTE [id number] UNIT #: [id number] ROOM: 510 DOCTOR: LLOYD KENDALL MD,SARA BIRTHDATE: [birth year] DOS: 03/22/2018 PULMONARY PROGRESS NOTE SUBJECTIVE: The patient noted comfortable at this time, resting on the bed without any acute distress. He denies any coughing, sputum expectoration, or chest congestion. OBJECTIVE: VITAL SIGNS: Normal temperature, respiratory rate of 18, heart rate of 99, and blood pressure of 94/60. Pulse oxygen saturation on 2 liters nasal cannula is 95% saturation. HEENT: Examination shows head was atraumatic. Eyes nonicterus. NECK: Supple. CARDIOVASCULAR SYSTEM: S1, S2 audible. LUNGS: Without any wheezing, occasional crackles at the left lung base. ABDOMEN: Soft, nontender. EXTREMITIES: No acute edema. IMPRESSION: 1. Resolving acute pneumonia, clinical or radiological at the present time with the antibiotics. 2. Clostridium difficile colitis. 3. History of advanced metastatic malignancy of gastrointestinal tract. PLAN OF THERAPY: No changes in the plan of care at this time will be necessary. Continue current plan of management as in progress. Usual care, other supportive care. SARA DESAI MD CM:PNTRANS [id number] SARA KENDALL MD 03/23/18 0152 interface
--- NOTE | ~2018-03-13 | PR ---
[place], [place] PROGRESS NOTE [id number] UNIT #: [id number] ROOM: 510 DOCTOR: LLOYD KENDALL MD,SARA BIRTHDATE: [birth year] DOS: 03/20/2018 PULMONARY PROGRESS NOTE SUBJECTIVE: The patient noted comfortable at this time, resting in the past, has not been noted any symptoms of sputum expectoration. Cough has been reported. Intermediate symptoms of shortness of breath described at rest. Symptoms of fever or chills. OBJECTIVE: VITAL SIGNS: Normal temperature, respiratory rate 26-18, heart rate 119-125, blood pressure 134/79, and pulse ox saturation on 4 liters 97% saturation recorded. HEENT: Examination shows head was atraumatic. Eyes nonicterus. NECK: Supple. CARDIOVASCULAR: S1, S2 is audible. LUNGS: Noted with scattered crackles of the lung. There was no wheezing. Decreased at lower portion of the lungs as well. ABDOMEN: Soft, nontender. Bowel sounds present. EXTREMITIES: No acute edema. IMPRESSION: 1. The patient with aspiration pneumonia, bilateral Pseudomonas aeruginosa. 2. The patient with ongoing urinary tract infection, resolving bacteremia with Escherichia coli. PLAN OF THERAPY: Continue antibiotics, bronchodilators, and oxygen supplementation. Repeat chest x-ray in the morning. Continue medical management of atrial tachycardia by Cardiology services and other therapy, plan of management, care plan and treatment and therapies. SARA DESAI MD CM:PNTRANS 1249 SARA KENDALL MD 03/21/18 0054 interface
--- NOTE | ~2018-03-13 | CON ---
[place], [place] REPORT OF CONSULTATION NAME: MELITA SHIRLEY UNIT #: [id number] ROOM: [facility] DOCTOR: EDYTA MARCELINO MD BIRTHDATE: [birth year] DOS: 03/13/2018 HISTORY OF PRESENT ILLNESS: An 82-year-old patient who presented with Lantus diarrhea and he is known with colonic cancer with metastasis to liver, status post chemotherapy, Lonsurf pills for day and he has been followed by oncologist. He has been on hospice and has signed him off the hospice and back to the acute care. PAST MEDICAL HISTORY: Colonic CA with metastasis, renal failure, abnormal LFTs as expected, protein-calorie malnutrition. Otherwise, history of lymphoma, hypertension, hemoptysis, noncardiac chest pain, diarrhea, subdural hematoma, anxiety. PAST SURGICAL HISTORY: Thyroid, cardiac stent. SOCIAL HISTORY: Nonsmoker, nonalcohol consumer. FAMILY HISTORY: Noncontributory. ALLERGIES: CEPHALEXIN. MEDICATIONS: List has been reviewed including Xarelto. REVIEW OF SYSTEMS: HEENT: Denies double vision, blurred vision. RESPIRATORY: Denies acute shortness of breath. CARDIOVASCULAR: Denies acute chest pain. DIGESTIVE SYSTEM: Diarrhea, anorexia. PHYSICAL EXAMINATION: VITAL SIGNS: Stable, afebrile, borderline hypotensive. HEENT: Head: Normocephalic, nontraumatic. Eyes: Pupils round, reactive. Sclerae nonicteric. Conjunctivae pink. NECK: Supple, no thyromegaly, no cervical lymphadenopathy. CHEST: Symmetric anatomy, equal expansion. Few scattered rhonchi through both lungs. HEART: Normal sinus rhythm, no gallop, no murmur. ABDOMEN: Soft. No hepato-organomegaly. Bowel sounds present. No pulsatile mass. No rebound tenderness. EXTREMITIES: No cyanosis, no pedal edema. NEUROLOGIC: Alert and oriented. LABORATORY DATA: Labs reviewed, records reviewed. IMPRESSION: Of prime concern, diarrhea, ruling out Clostridium difficile as a cause or ruling out secondary to status post chemotherapy. PLAN AND DISCUSSION: We are going to collect stool for C. diff. We are going to start him on vancomycin after that. We are going to start him on Questran as well 1 pack b.i.d. to be 3 hours away from vancomycin use in addition to Flagyl [place], [place] REPORT OF CONSULTATION NAME: MELITA SHIRLEY UNIT #: [id number] ROOM: [facility] DOCTOR: RYLAND MUNOZ,EDYTA BIRTHDATE: [birth year] IV 500 mg t.i.d. His lab; H and H of 8 and 27 with platelet of 230 plus was noticed. His BUN of 49, creatinine 1.2 noticed. Hyponatremia is known. Abnormal liver function tests expected secondary to metastatic colonic carcinoma. Furthermore, history of lymphoma is known. Supportive management otherwise till etiology of the diarrhea is defined. Diet can be as tolerated and dairy-free. Thank you very much indeed. EDYTA MARCELINO MD CM:CONSTR:REPORT OF CONSULTATION 1653 03/14/18 0312 interface
--- NOTE | ~2018-03-13 | PR ---
[place], [place] PROGRESS NOTE NAME: MELITA SHIRLEY UNIT #: [id number] ROOM: 510 DOCTOR: ROBB JIMÉNEZ MD BIRTHDATE: [birth year] DOS: 03/21/2018 CARDIOLOGY PROGRESS NOTE. SUBJECTIVE. He thrombus was seen at his bedside today with several family members in attendance on 03/21/2018. He is breathing better and seems less uncomfortable. He does note that he is fatigued. He denies palpitations, lightheadedness or syncope. Review of the monitor shows that his heart rate is around 100, but still in atrial fibrillation. PHYSICAL EXAMINATION: VITAL SIGNS: Today his pulse is 80 and irregularly irregular, blood pressure is 128/86. He is afebrile. NECK: Supple. He has no jugular distention. Carotids are full. There are no bruits. He has no neck or supraclavicular masses and no thyromegaly. LUNGS: Respirations are unlabored. He has decreased breath sounds at the bases, especially on the left. He had no wheezes. HEART: Had an irregularly irregular rhythm without murmurs or gallops. ABDOMEN: Benign. EXTREMITIES: Showed no significant edema. LABORATORY DATA: Hemoglobin is 8.6, white count 12,300, platelet count 145,000. Sodium 145, potassium 3.8, BUN 18, creatinine 0.62. IMPRESSION: 1. Paroxysmal atrial fibrillation. The patient's rate is fairly well controlled right now and he remains on rivaroxaban for stroke prophylaxis. 2. Atherosclerotic heart disease. The patient has no symptoms of angina at this time. 3. Mild elevation in troponin, probably due to tachycardia from his atrial fibrillation (type 2 myocardial injury). 4. Pseudomonas pneumonia -- improving. 5. Gram-negative bacteremia with Escherichia coli -- resolved. 6. Urinary tract infection with Escherichia coli. 7. Clostridium difficile enterocolitis. 8. 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 PLAN: Since his rate is controlled and he is comfortable, I will make no further changes in his cardiac medications at this time. We will continue to observe him intermittently with his other physicians. I thank the hospitalist physicians for asking our advice regarding his care. [place], [place] PROGRESS NOTE NAME: MELITA SHIRLEY UNIT #: [id number] ROOM: 510 DOCTOR: ROBB JIMÉNEZ MD BIRTHDATE: [birth year] ROBB JIMÉNEZ MD CM:PNTRANS 1023 17 ROBB JIMÉNEZ MD 03/21/182117 interface
--- NOTE | ~2018-03-13 | PR ---
[place], [place] PROGRESS NOTE NAME: [facility]IR[facility] [id number] UNIT #: [id number] ROOM: 510 DOCTOR: LLOYD KENDALL MD,SARA BIRTHDATE: [birth year] DOS: 03/25/2018 SUBJECTIVE: The patient noted comfortable at this time, sitting this morning on the chair, eating his own breakfast. He has not been noted symptoms of chest pain or shortness of breath. The coughing has been resolving gradually. Denies symptoms of chest pain or hemoptysis. OBJECTIVE: VITAL SIGNS: For the patient which has been recorded showed normal temperature, respiratory rate 20, heart rate 85, blood pressure 127/78. Pulse oxygen saturation on 1 liters nasal cannula is 94% saturation. HEENT: No acute change. NECK: Supple. CARDIOVASCULAR: S1, S2 audible. LUNGS: The patient was noted without any wheezing or crackles. Breaths are noted [id number]-cr-[id number] decreased bilaterally. ABDOMEN: Soft and nontender. Bowel sounds present. EXTREMITIES: Without any acute edema. IMPRESSION: 1. Resolving acute pneumonia with respiratory failure with Pseudomonas aeruginosa. 2. Resolution of bacteremia with Escherichia coli. 3. Resolving urinary tract infection. PLAN OF MANAGEMENT: No changes in the plan of care at this time. Continuation of current therapy, plan of management as in progress. Discharge planning. The patient has been noted in progress. From the Pulmonary standpoint, the patient could be discharged to [facility] whenever desired. Follow the recommendation antibiotic, duration per Infectious Disease specialist. SARA DESAI MD CM:PNTRANS 1030 1223 SARA KENDALL MD 03/25/18 1222 interface
--- NOTE | ~2018-03-13 | EKG ---
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: Monica Zayas : 1935 Requested By: JOSEPH OSULLIVAN Order Number: [id number] Reading MD: Justin Nelson MD Measurements Intervals [place] Rate: 131 P: CT: QRS: -12 QRSD: 104 T: 127 QT: 346 QTc: 511 Interpretive Statements Atrial fibrillation Probable inferior infarct, old Probable anterolateral infarct, age indeterm Prolonged QT interval Compared to ECG 01/10/2018 01:40:37 Myocardial infarct finding now present Sinus rhythm no longer present T-wave abnormality no longer present Electronically Signed On 03-15-2018 18:43:56 PST by Justin Nelson MD CM:EKGRPT:ELECTROCARDIOGRAM REPORT 1212 [id number] JOSEPH GILL DRAFT REPORT JOSEPH OSULLIVAN DO
--- NOTE | ~2018-03-13 | PR ---
[place], [place] PROGRESS NOTE NAME: MELITA SHIRLEY [facility] #: [id number] UNIT #: [id number] ROOM: 510 DOCTOR: RYLAND MUNOZEDYTA BIRTHDATE: [birth year] DOS: 03/22/2018 GASTROENDOSCOPIC PROGRESS REPORT SUBJECTIVE: This gentleman is an [id number], who has presented with multiple problems, among which has been pulmonary infiltrate, known metastatic disease, superimposed C. diff infection, has been on the vancomycin therapy. He has on initial presentation up to 20 bowel movement. Quite dehydrated and ____. After the stool studies became available, the C. diff was confirmed, vancomycin has been positively affecting the diarrhea reversal. His appetite has improved; however, he is continuing with his cough and periodic phlegm formation. The patient has pulmonary infiltrate, which is known. His latest CBC: H and H of 7.9 and 24, platelet of 132, and neutrophils of 97. His basic metabolic panel, electrolytes balanced, calcium is 7.8. His nutritional status is dismal; however, adequate for his category of disease and end-stage metastatic carcinoma. His blood cultures were consistent with sepsis, gram-negative bacilli, which is being addressed with antibiotic. REVIEW OF SYSTEMS: HEENT: In general, denies double vision, blurred vision. RESPIRATORY: He admits some cough and shortness of breath; however, some improvement from the initial admission. CARDIOVASCULAR: He denies chest pain. DIGESTIVE SYSTEM: Over the past 3 days, he has been having 1-2 bowel movements daily. PHYSICAL EXAMINATION: VITAL SIGNS: Stable. GENERAL: Nontoxic at the present time, communicating, conversing. HEENT: Head is normocephalic, nontraumatic. Mouth and buccal mucosa benign. No aphthae ulceration. No thrush. NECK: Supple. LUNGS: Few scattered rhonchi anteroposteriorly. HEART: Irregular irregularity. ABDOMEN: Slightly obese. No hepato-organomegaly. Bowel sounds present. EXTREMITIES: Mild edema. NEUROLOGIC: He appears to be alert and oriented. IMPRESSION: Pneumonic infiltrate, septicemia, metastatic colonic carcinoma, and Clostridium difficile colitis, on vancomycin therapy. PLAN AND DISCUSSION: We are going to continue with the present therapy. Cardiac, pulmonary, and gastrointestinal issues are being addressed. Supportive management otherwise. Thank you very much indeed. [place], [place] PROGRESS NOTE NAME: MELITA SHIRLEY UNIT #: [id number] ROOM: [facility] DOCTOR: RYLAND MUNOZ,EDYTA BIRTHDATE: [birth year] EDYTA MARCELINO MD CM:GARTH 1749 07 EDYTA MARCELINO MD 03/23/18 07 interface
--- NOTE | ~2018-03-13 | PR ---
[place], [place] PROGRESS NOTE NAME: [id number] UN[facility] #: [id number] ROOM: 510 DOCTOR: LLOYD KENDALL MD,SARA BIRTHDATE: [birth year] DOS: 03/18/2018 SUBJECTIVE: The patient was noted comfortable at this time, noted fully awake and alert this morning, transfer to a single private room from the intensive care unit. Continue antibiotics. The patient has extended-infusion of IV Zosyn. Denies abdominal pain. The patient does have mild shortness of breath and cough. OBJECTIVE: VITAL SIGNS: Normal temperature, respiratory rate 18, heart rate 81, blood pressure 142/76. Pulse oxygen saturation on 3 liters 95% saturation. HEENT: Examination shows head was atraumatic. Eyes nonicterus. NECK: Supple. CARDIOVASCULAR: S1, S2 audible. LUNGS: Bibasilar crackles, no wheezing. ABDOMEN: Soft, nontender. Bowel sounds present. EXTREMITIES: Without any acute edema. LABORATORY DATA: Infiltration, remained persistent, which has been noted increased as compared to previous chest x-ray. IMPRESSION: 1. The patient who has been currently noted bilateral pneumonia with Pseudomonas aeruginosa, currently treated with antibiotic and IV Zosyn. 2. Escherichia coli bacteremia, urinary tract infection, which is also treated with IV Zosyn. PLAN OF TREATMENT: Continue oxygen supplementation, bronchodilators, extended-infusion of the IV Zosyn. ____ measures and therapies. SARA DESAI MD CM:PNTRANS [id number] SARA KENDALL MD 03/18/18 2322 interface
--- NOTE | ~2018-03-13 | CON ---
[place], [place] REPORT OF CONSULTATION NAME: MELITA SHIRLEY UNIT #: [id number] ROOM: [facility]- DOCTOR: BOBBI MOTLEY MD BIRTHDATE: [birth year] DOS: 03/14/2018 REASON FOR CONSULTATION: Diarrhea and Gram-negative bacteremia. CHIEF COMPLAINT: Weakness, diarrhea. 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 There is also mention that he has productive cough, but that has been going on for more than a month, associated with some shortness of breath. No chest pain. No fever or chills. Initially on admission, he mentioned he was fecal incontinent with more than 15 bowel movements a day, but when asked with the at bedside, she mentioned some days he would have 4-5, some days 2 and today also he had only 2 bowel movements so far. His C. diff testing is in process. However, his blood cultures from admission, 3 bottles reported positive for gram-negative bacilli. He does not have any urinary complaints. His UA shows 5-10 wbc's. Urine culture also has moderate gram-negative bacteria. His chest x-ray imaging done yesterday shows mass-like consolidation in the left base, superimposed area of consolidation in both lung bases. PAST MEDICAL HISTORY: Significant for coronary artery disease; benign prostate hyperplasia; colon cancer with mets; hypertension; lymphoma, resolved. PAST SURGICAL HISTORY: Thyroid surgery, cardiac stent. SOCIAL HISTORY: Nonsmoker, nonalcoholic, no illicit drug use. FAMILY HISTORY: Noncontributory at this time. ALLERGIES: KEFLEX. HOME MEDICATIONS: Reviewed. REVIEW OF SYSTEMS: A 12-point review of systems has been done. Pertinent negative, positive has been included in the HPI, rest are noncontributory. PHYSICAL EXAMINATION: VITAL SIGNS: Temperature 97.6, pulse rate 120, blood pressure 88/60, oxygen saturation 96% on 2 liters of oxygen. GENERAL: The patient is alert, oriented x 3, in mild to moderate distress. HEENT: No oral thrush. Atraumatic, normocephalic. PERRLA, EOMI. RESPIRATORY: Air entry bilaterally equal. Coarse crackles bilateral lower lungs, more on the left compared to the right. CARDIOVASCULAR: S1, S2 normal. No murmurs, rubs or gallops. ABDOMEN: Soft, nontender, nondistended. Bowel sounds present in all 4 quadrants. EXTREMITIES: No pedal edema. [place], [place] REPORT OF CONSULTATION NAME: MELITA SHIRLEY UNIT #: [id number] ROOM: [facility] DOCTOR: BOBBI MOTLEY MD BIRTHDATE: [birth year] Lines, MediPort noted. LABORATORY DATA AND IMAGING: Noted, mentioned in HPI. ASSESSMENT AND PLAN: 1. Sepsis. 2. Gram-negative bacteremia, likely source is abdomen, less likely urinary or from pneumonia. 3. Healthcare-associated pneumonia. 4. History of metastatic colon cancer, currently not on chemotherapy. 5. History of lymphoma, resolved. PLAN: 1. At this time, for his gram-negative bacteremia with multiple diarrheas, I will focus on getting a CT abdomen and pelvis with contrast. 2. He does not have any urinary complaints at this time, although if his urine cultures and blood cultures have the same bacteria, it could be a possible source. 3. He has pneumonia treated during the last admission. I believe this is the unresolved issue from the last admission. 4. Discontinue IV vancomycin and azithromycin. 5. Continue Zosyn for now. Okay to keep p.o. vancomycin pending C. diff testing. 6. Discuss with ICU resident. Thank you for your consult. Please call for any questions. Bobbi Motley MD CM:CONSTR:REPORT OF CONSULTATION 4 03/15/18 0242 interface
--- NOTE | ~2018-03-13 | PR ---
[place], [place] PROGRESS NOTE NAME: [facility]IRLEY [id number] UNIT #: [id number] ROOM: 510 DOCTOR: LLOYD KENDALL MD,SARA BIRTHDATE: [birth year] DOS: 03/26/2018 PULMONARY PROGRESS NOTE SUBJECTIVE: The patient is noted comfortable at this time without any acute distress, resting comfortably. At this time, he has been noted with chest congestion and coughing, not coughing hard enough to expectorate sputum. However, he denies symptoms of abdominal pain, nausea, vomiting or diarrhea. OBJECTIVE: VITAL SIGNS: Normal temperature, respiratory rate of 20, heart rate 80, blood pressure 132/70, pulse oxygen saturation on 3 liters nasal cannula was 95% saturation. HEENT: Head was atraumatic. Eyes nonicterus. NECK: Supple. CARDIOVASCULAR: S1 and S2 audible. LUNGS: Without any wheeze or crackles. ABDOMEN: Soft, nontender. EXTREMITIES: Without any acute edema. IMPRESSION: 1. Acute pneumonia with Pseudomonas aeruginosa. 2. Bacteremia with Escherichia coli. 3. Urinary tract infection. 4. History of known metastatic advanced gastrointestinal cancer. PLAN OF MANAGEMENT: No change from pulmonary standpoint. The patient has been noted stable, currently waiting discharge planning to the socially responsible investment adviser. SARA DESAI MD CM:JENNIFERTRANS [id number] SARA KENDALL MD 03/26/18 1441 interface
--- NOTE | ~2018-03-13 | PR ---
[place], [place] PROGRESS NOTE [id number] UN[facility] #: [id number] ROOM: 510 DOCTOR: LLOYD KENDALL MD,SARA BIRTHDATE: [birth year] DOS: 03/27/2018 PULMONARY PROGRESS NOTE SUBJECTIVE: The patient noted comfortable without any acute distress. He has not been noted symptoms of chest pain. Still reporting coughing without any sputum expectoration. Denies symptoms of chest pain. OBJECTIVE: VITAL SIGNS: Normal temperature, respiratory rate 16, heart rate 72, blood pressure 115/63. Pulse oxygen saturation was recorded as 94% on 2 liters nasal cannula. HEENT: Examination shows head was atraumatic. Eyes nonicterus. NECK: Supple. CARDIOVASCULAR: S1, S2 audible. LUNGS: Decreased breath sounds noted without any crackles today. ABDOMEN: Soft, nontender. EXTREMITIES: Without any acute edema. IMPRESSION: Stable respiratory status, resolving Clostridium difficile colitis, improved, Escherichia coli bacteremia and the urinary tract infection, resolving, acute pneumonia with Pseudomonas aeruginosa. PLAN OF TREATMENT: Encouraged the patient about the coughing with sputum expectoration to clear of secretion from the endobronchial tree. Continuation of the other medical management, plan of care without any changes. Usual care, other supportive plan of treatment and therapies. SARA DESAI MD CM:GARTH [id number] SARA KENDALL MD 03/27/18 0929 interface
--- NOTE | ~2018-03-13 | PR ---
[place], [place] PROGRESS NOTE NAME: [id number] UNIT #: [id number] ROOM: [facility] DOCTOR: LLOYD KENDALL MD,SARA BIRTHDATE: [birth year] DOS: 03/16/2018 PULMONARY PROGRESS NOTE SUBJECTIVE: The patient has been noted comfortable, noted with increased oxygen requirement partially yesterday, but then later stabilized on 4 liters of oxygen supplementation this morning, noted awake. He has been noted cough, but there was no sputum expectoration. Denies symptoms of abdominal pain. The diarrhea of the patient has been decreasing. Denies any symptoms of fever or chills. Denies symptoms of nausea or vomiting. Denies symptoms of headache or general weakness, which have persisted with partial improvement. Medication review that was noted all negative. OBJECTIVE: VITAL SIGNS: Blood pressure of 120/58-131/64. Temperature 100.2, declined a rectal temperature, respiratory rate 24-34. Heart rate of 74-83. Pulse ox saturation on 4 liters nasal cannula was recorded 98% saturation. HEENT: Head was atraumatic. Eyes nonicterus. NECK: Supple. CARDIOVASCULAR: S1, S2 is audible. LUNGS: The patient was noted with crackles of the lung noted in middle and lower portion of the lung. There was no wheezing. ABDOMEN: Soft, bowel sounds present without any tenderness. EXTREMITIES: Noted without any edema. VISIBLE SKIN: No lesions or rashes. MUSCULOSKELETAL: Without acute deformities. LABORATORY DATA: CBC: WBC count 11.3, hemoglobin 8, and platelet count 159,000. BMP that was done on 03/16/2018, normal BUN and creatinine. Culture of the sputum noted heavy growth of Pseudomonas aeruginosa, which is noted sensitive to the IV Zosyn and some other antibiotics. IMPRESSION: 1. The patient who has been noted with concomitant infection with acute pneumonia, Pseudomonas aeruginosa. In addition to that bacteremia with Escherichia coli arising from the urinary tract infection as well. 2. The patient has known history of metastatic malignant gastrointestinal tract. Currently not noted a candidate and further management. General weakness and fatigue were noted. Diarrhea, which was noted with current medical management. There were no signs of Clostridium difficile or other abnormal isolation of any infection. PLAN OF MANAGEMENT: The patient will be continued on the oxygen supplementation, maintain pulse oxygen to 92% or greater. Continue the current medical management. Noted no intubation with the pressure support. If the patient would be needing any respiratory support because of hypoxia could be started on Optiflow oxygen supplementation. Because of the pneumonia, the BiPAP would not be used. Overall prognosis is noted guarded. The switching of antibiotics will be recommended formal Unasyn to the IV Zosyn extended infusion for ____ Pseudomonas aeruginosa and would also concomitantly treat his E. coli [place], [place] PROGRESS NOTE NAME: MELITA SHIRLEY UNIT #: [id number] ROOM: [facility] DOCTOR: LLOYD KENDALL MD,SARA BIRTHDATE: [birth year] bacteremia and urinary tract infection as well. Other supportive therapy, plan of management, care plan as well. Usual treatment, other supportive therapies. Other additional treatment changes will be ordered based on progression of the illness. Assessment and management were discussed with the patient's family members as well. SARA DESAI MD CM:PNTRANS [id number] SARA KENDALL MD 03/17/18 0037 interface
--- NOTE | ~2018-03-13 | PR ---
[place], [place] PROGRESS NOTE NAME: MELITA SHIRLEY [facility] #: [id number] UNIT #: [id number] ROOM: [facility]- DOCTOR: ROBB JIMÉNEZ MD BIRTHDATE: [birth year] DOS: 03/16/2018 CARDIOLOGY PROGRESS NOTE SUBJECTIVE: The patient was seen today at his bedside in the Intensive Care Unit on 03/16/2018 with family members in attendance. He is an 82-year-old man with a history of paroxysmal atrial fibrillation and atherosclerotic heart disease. He also has metastatic colon cancer with hepatic and spine mets that have been documented. He was on hospice for this, but lately became very ill with cough and weakness. He therefore rescinded his request for hospice and came to the hospital, where he was found to have pneumonia and sepsis with E. coli as well as urinary tract infection with E. coli. He was also found to be in atrial fibrillation with a rapid ventricular response. He was placed on an amiodarone drip and converted back to sinus rhythm. Troponin levels did elevate minimally to 0.225. He denies any chest pain and did not have any acute EKG changes. PHYSICAL EXAMINATION: GENERAL: Today, he is an elderly white male who looks fatigued, but he is awake, alert and oriented. VITAL SIGNS: Pulse is 88 and regular, blood pressure is 129/66. He is afebrile. He weighs 80.96 kg and has a body mass index of 26.4. HEENT: Normocephalic and atraumatic. Extraocular muscles are intact. Sclerae are clear. Pupils are equal, round and react to light. The oral mucosa is moist. NECK: Supple. He has no jugular distention. Carotids are full. LUNGS: Respirations are unlabored at rest. He does have decreased breath sounds at the bases bilaterally. HEART: Regular rhythm with a fourth heart sound, but no third heart sound. He has a grade 3/6 holosystolic murmur at the apex. There is no diastolic murmur. ABDOMEN: Soft and normally active. EXTREMITIES: Showed no edema. LABORATORY DATA: Hemoglobin is 8.0, white count 11,300, platelet count 159,000. Sodium 139, potassium 3.9, BUN 19, creatinine 0.89. IMPRESSION: 1. Paroxysmal atrial fibrillation. The patient is now back in sinus rhythm. 2. Atherosclerotic heart disease. The patient has no symptoms of angina at this time. 3. Mild elevation in troponin, probably due to tachycardia and atrial fibrillation (type 2 myocardial injury). 4. Pneumonia. 5. Gram-negative septicemia with Escherichia coli. 6. 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 PLAN: The patient appears to be stable from a cardiac standpoint at this time; no further cardiac evaluation is planned. We will continue to monitor his rhythms and vital signs with his primary physicians. [place], [place] PROGRESS NOTE [facility]: [id number] UNIT #: [id number] ROOM: [facility] DOCTOR: ROBB JIMÉNEZ MD BIRTHDATE: [birth year] I thank the hospitalist physicians for asking our advice regarding his care. ROBB JIMÉNEZ MD CM:PNTRANS [id number] ROBB JIMÉNEZ MD 03/17/18 0020 interface
--- NOTE | ~2018-03-13 | PR ---
[place], [place] PROGRESS NOTE NAME: MELITA SHIRLEY UNIT #: [id number] ROOM: [facility]- DOCTOR: SAVANNA GOLDEN BIRTHDATE: [birth year] DOS: 03/15/2018 PULMONOLOGY PROGRESS NOTE SUBJECTIVE: The patient was seen and evaluated in the critical care bed. The patient reports that he feels about the same as yesterday, but is not quite sure as he just had awakened. The patient notes that he still has a cough and that is productive of significant sputum. The patient also notes continued shortness of breath, fatigue and weakness. OBJECTIVE: VITAL SIGNS: Blood pressure 94/60, respiratory rate 29, pulse rate 89, temperature 98.8. GENERAL: The patient is alert and oriented, in mild distress. HEAD: Atraumatic, normocephalic. EYES: PERRLA, nonicteric. NECK: Supple. HEART: Regular rate and rhythm. No murmurs, rubs or gallops. LUNGS: Rhonchi and crackles noted bilaterally. ABDOMEN: Soft, nontender. Bowel sounds present. EXTREMITIES: No acute edema. NEUROLOGIC: Grossly intact. No neurological deficits. LABORATORY DATA: White blood cell count 10.6, hemoglobin 8.4, hematocrit 25.8, platelet count 181. Sodium 136, potassium 3.3, chloride 105, carbon dioxide 19, BUN 25, creatinine 1.02. IMPRESSION: Acute multifocal multilobar pneumonia. General weakness and fatigue, likely due to current illness and underlying malignancy. Recent diagnosis of metastatic lymphoma, chronic diarrhea, atrial fibrillation with rapid ventricular response. PLAN OF MANAGEMENT: Cardiology is following for management of AFib, RVR and the patient has converted to normal sinus rhythm with the addition of amiodarone and digoxin. With multifocal pneumonia, the patient is on Zosyn for subsequent gram-negative E. coli bacteremia and this will also cover the pneumonia. Continue oxygen supplementation to maintain pulse ox greater than 92%. Changes in care and therapy will be made based on cultures and progression of illness and progression of symptoms. Golden DO [place], [place] PROGRESS NOTE NAME: MELITA SHIRLEY UNIT #: [id number] ROOM: [facility] DOCTOR: GOLDEN SEBASTIAN DO BIRTHDATE: [birth year] SARA DESAI MD CM:PNTRANS [id number] GOLDEN SEBASTIAN DO 03/16/18 0729 interface
--- NOTE | ~2018-03-13 | PR ---
[place], [place] PROGRESS NOTE NAME: MELITA SHIRLEY UNIT #: [id number] ROOM: 510 DOCTOR: CECILIO CRISTOBAL BIRTHDATE: [birth year] DOS: 03/20/2018 PULMONARY PROGRESS NOTE SUBJECTIVE: The patient was noted resting comfortably at his bed at this time without any signs of acute distress. The patient states he feels he is breathing slightly better. The patient denies fevers, chills as well as abdominal pain. OBJECTIVE: VITAL SIGNS: Temperature normal, respiratory rate 26, heart rate 128, blood pressure 120/78, pulse oxygen saturation on 4 liters nasal cannula 97% saturation. HEENT: Head is atraumatic. Eyes, nonicterus. CARDIOVASCULAR: S1, S2 audible. LUNGS: Without any wheezing or crackles. ABDOMEN: Soft, nontender. EXTREMITIES: No acute edema. IMPRESSION: 1. Acute pneumonia with Pseudomonas aeruginosa. 2. Clostridium difficile colitis. 3. Bacteremia with Escherichia coli and Escherichia coli urinary tract infection. No bacterial growth seen on repeat blood culture. 4. History of advanced metastatic gastrointestinal malignancy. PLAN OF MANAGEMENT: No current change in plan of care from a pulmonary standpoint at this time. We will continue the recommendations of antibiotics per infectious disease specialist. Continue bronchodilator therapy and other management. CECILIO CRISTOBAL DO [place], [place] PROGRESS NOTE NAME: MELITA SHIRLEY UNIT #: [id number] ROOM: 510 DOCTOR: CECILIO CRISTOBAL BIRTHDATE: [birth year] SARA DESAI MD CM:GARTH [phone] CECILIO CRISTOBAL 03/21/18 0645 interface
--- NOTE | ~2018-03-13 | PR ---
[place], [place] PROGRESS NOTE NAME: MELITA SHIRLEY UNIT #: [id number] ROOM: 510 DOCTOR: SARA RUIZ MD BIRTHDATE: [birth year] DOS: 03/24/2018 SUBJECTIVE: The patient was noted comfortable at this time, resting without any acute distress. Mild cough reported without symptoms of sputum expectoration. Denies symptoms of fever or chills. Denies symptoms of chest pain. The diarrhea seemed to be resolved gradually and progressively. The patient does not have any symptoms of abdominal pain, nausea, vomiting, or diarrhea. General weakness and fatigue was noted. No symptoms of headache or diplopia. The patient denies symptoms of dryness of the mouth or sore throat. Remaining systems were reviewed. They were noted negative. OBJECTIVE: VITAL SIGNS: For the patient, which was recorded showed the temperature noted as normal. Respiratory rate recorded as 16, heart rate of 94, and blood pressure 102/56. HEENT: Examination shows head was atraumatic. Eyes: No icterus. NECK: Supple. CARDIOVASCULAR: S1, S2 is audible. LUNGS: Without any wheeze or crackles. ABDOMEN: Soft, nontender, and nondistended. EXTREMITIES: Without any acute edema. VISIBLE SKIN: No lesions or rashes. MUSCULOSKELETAL: Without any deformities. CENTRAL NERVOUS SYSTEM: General weakness, but the patient noted without any gross focal deficit. LABORATORY DATA: The chest x-ray that was done this morning shows small infiltration noted in the left lower lobe possibly associated pleural fluid and haziness. IMPRESSION: 1. Acute pneumonia with Pseudomonas aeruginosa. 2. ____ 3. Advanced gastrointestinal malignancy. 4. Acute respiratory failure. PLAN OF MANAGEMENT: 1. No changes in the plan of care at this time from pulmonary standpoint. ____ most likely related to ____ rather than worsening of pneumonia. 2. Mucous impaction. Continue ____ therapy, plan of management. There was no plan of any invasive procedures at this time. Clinically, the patient was doing well. [place], [place] PROGRESS NOTE NAME: MELITA SHIRLEY UNIT #: [id number] ROOM: 510 DOCTOR: SARA RUIZ MD BIRTHDATE: [birth year] SARA DESAI MD CM:PNTRANS [phone] SARA KENDALL MD 03/24/18 1724 interface
--- NOTE | ~2018-03-13 | PR ---
[place], [place] PROGRESS NOTE NAME: MELITA SHIRLEY UNIT #: [id number] ROOM: [facility] DOCTOR: LLOYD KENDALL MD,SARA BIRTHDATE: [birth year] DOS: 03/17/2018 SUBJECTIVE: The patient was noted comfortable at this time. He has been resting. The several family members are in the room. The patient's care had been changed to the telemetry floor. He has been still treated in Intensive Care Unit. Has not been noted any vasopressor requirement. The cough has been noted at time. The patient expectorated some sputum yesterday and also sat on the chair some time. Temperature noted low grade. The antibiotic was changed to the IV Zosyn by the Infectious disease specialist. Diarrhea continued to improve. The patient gradually. He was still noted severe generalized weakness and fatigue, inability to ambulate. There was no pain reported. Remaining review of systems limited, but negative. OBJECTIVE: VITAL SIGNS: Temperature 99.75, normal temperature, respiratory rate of 14-28, heart rate of 82-78, blood pressure 135/71-138/74. The pulse oxygen saturation on 3 liters cannula this morning was 96% saturation. HEAD, EYES, EARS, NOSE, AND THROAT: ____. Head was atraumatic. Eyes nonicterus. NECK: Supple. CARDIOVASCULAR SYSTEM: S1, S2 is audible. LUNGS: Noted with scattered crackles of the lungs. ABDOMEN: Soft, nontender. EXTREMITIES: Noted without any acute edema. VISIBLE SKIN: No lesions or rashes. MUSCULOSKELETAL: Without any overt deformity. CENTRAL NERVOUS SYSTEM: Intermittent change in mental status with overall weakness. IMPRESSION: 1. The patient who has been currently treated for acute bilateral pneumonia, Pseudomonas aeruginosa, acute sepsis with bacteremia, urinary tract infection and Escherichia coli. 2. Acute respiratory failure as well. 3. Advanced metastatic cancer of the gastrointestinal tract. PLAN OF MANAGEMENT: No changes in plan of care at this time. Assessment and management discussed with the patient, family members. Obtain a chest x-ray to reassess the progression of the pneumonia and other radiological disease progression. Other supportive therapy, plan of management, care plan as well. Supportive care therapy, plan of treatment. [place], [place] PROGRESS NOTE NAME: MELITA SHIRLEY UNIT #: [id number] ROOM: 510 DOCTOR: SARA RUIZ MD BIRTHDATE: [birth year] SARA DESAI MD CM:PNTRANS [id number] SARA KENDALL MD 03/17/18 1515 interface
--- NOTE | ~2018-03-13 | PR ---
[place], [place] PROGRESS NOTE NAME: MELITA SHIRLEY [facility] #: [id number] UNIT #: [id number] ROOM: 510 DOCTOR: ROBB JIMÉNEZ MD BIRTHDATE: [birth year] DOS: 03/20/2018 CARDIOLOGY PROGRESS NOTE SUBJECTIVE: The patient is an 82-year-old man with multiple medical problems. From a cardiac standpoint, he suffers from recurrent atrial fibrillation with rapid ventricular response along with atherosclerotic heart disease. He was seen today with his and several other family members in attendance. He was hospitalized on this occasion because of bacteremia with E. coli, an E. coli urinary tract infection, and pseudomonas pneumonia. Since I last saw him a few days ago, he developed diarrhea and was diagnosed as having Clostridium difficile enterocolitis. Last night, he did go back into atrial fibrillation with rapid ventricular response and I resumed diltiazem orally to try to control the rate. The patient is breathing more easily and a chest x-ray done today to my interpretation shows improvement in the right lung aeration as well as the upper left lung. PHYSICAL EXAMINATION: VITAL SIGNS: His pulse is 130 and irregularly irregular, blood pressure is 119/75. He is afebrile. NECK: Supple. He has no jugular distention. Carotids are full. LUNGS: Respirations are unlabored. Chest is clear on the right with a few crackles at the right base. His left base has coarse crackles and wheezes. HEART: Has an irregularly irregular rhythm without murmurs, rubs or gallops. ABDOMEN: Soft and normally active. EXTREMITIES: Showed no edema. IMPRESSION: 1. Paroxysmal atrial fibrillation. The patient returned to atrial fibrillation last night without symptoms. We will try to control him with oral medications. 2. Atherosclerotic heart disease. The patient has no symptoms of angina at this time. 3. Mild elevation in troponin, probably due to tachycardia and atrial fibrillation (type 2 myocardial injury). 4. Pseudomonas pneumonia. 5. Gram-negative bacteremia with Escherichia coli -- resolved. 6. Urinary tract infection with Escherichia coli. 7. Clostridium difficile enterocolitis. 8. 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 PLAN: We will increase his diltiazem and continue to observe him on the monitor. I thank the hospitalist physicians for asking our advice regarding his care. [place], [place] PROGRESS NOTE NAME: MELITA SHIRLEY UNIT #: [id number] ROOM: 510 DOCTOR: ROBB JIMÉNEZ MD BIRTHDATE: [birth year] ROBB JIMÉNEZ MD CM:PNTRANS [phone] ROBB JIMÉNEZ MD 03/21/18218 interface
--- NOTE | ~2018-03-13 | EKG ---
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
[~2018-03-13 11:12] MED LIST changes: +LEVAQUIN500 M2 PO; +LOPERAMIDE HCL2 MG PO; +MARINOL2.5 M1 PO; +XARE15TA PO
[2018-03-13 12:23] LABS: HEMATOCRIT 25.6 % (42.0-52.0); HEMOGLOBIN 8.7 g/dl (14.0-18.0); MEAN CELL VOLUME 93.4 fl (80.0-94.0); MEAN CORPUSCULAR HGB 31.8 pg (27.0-31.0); MEAN PLATELET VOLUME 10.4 fl (9.6-12.3); PLATELET COUNT AUTOMATED 236 10*3/uL (130-400); RED BLOOD COUNT 2.74 10*6/uL (4.50-5.90); RED CELL DISTRI WIDTH 18.2 % (0-14.5); WHITE BLOOD COUNT 10.2 10*3/uL (4.8-10.8)
[2018-03-13 12:35] LABS: ACT PARTIAL THROMBO TIME 26.6 SECONDS (20.8-31.5); INTERNATIONAL NORM RATIO 1.1 (2.0-3.5)
[2018-03-13 12:39] LABS: ALBUMIN 2.1 gm/dl (3.1-4.5); ALKALINE PHOSPHATASE 258 U/L (45-117); BUN 49 mg/dl (7-24); CHLORIDE 96 mmol/L (98-107); CREATININE 1.24 mg/dL (0.70-1.30); POTASSIUM 4.2 mmol/L (3.5-5.1); SGOT/AST 60 IU/L (3-35); SGPT/ALT 32 U/L (12-78); SODIUM 128 mmol/L (136-145); TOTAL PROTEIN 5.5 gm/dL (6.4-8.2)
[2018-03-13 12:45] LABS: TROPONIN I < 0.015 ng/ml (<0.045)
[2018-03-13 12:47] LABS: PLATELET SUFFICIENCY NORMAL (NORMAL); TOTAL CELLS COUNTED 100 #CELLS
[2018-03-13 12:48] LABS: POLYCHROMASIA SLIGHT
[2018-03-13 13:09] LABS: BILIRUBIN NEGATIVE (NEGATIVE); BLOOD NEGATIVE (NEGATIVE); CLARITY SL CLOUDY (CLEAR); COLOR YELLOW (YELLOW); GLUCOSE NEGATIVE (NEGATIVE); KETONE NEGATIVE (NEGATIVE); LEUKO ESTERASE NEGATIVE (NEGATIVE); NITRITE NEGATIVE (NEGATIVE); SPECIFIC GRAVITY 1.025 (1.005-1.030); UROBILINOGEN 0.2 E.U./dl (0.2-1.0)
[2018-03-13 13:37] LABS: BACTERIA 2+
[2018-03-13] MEDS ORDERED: REMERON15 M2 PO (15:56)
[2018-03-13] MEDS ORDERED: IMODIUM A-D2 M2 PO (16:00)
[2018-03-14] VITALS (15 sets, daily range): BP systolic 88–125; BP diastolic 56–80
[2018-03-14 03:16] LABS: HEMATOCRIT 25.7 % (42.0-52.0); HEMOGLOBIN 8.5 g/dl (14.0-18.0); MEAN CELL VOLUME 93.8 fl (80.0-94.0); MEAN CORPUSCULAR HGB CONC 33.1 g/dl (33.0-37.0); MEAN PLATELET VOLUME 9.9 fl (9.6-12.3); RED BLOOD COUNT 2.74 10*6/uL (4.50-5.90); RED CELL DISTRI WIDTH 18.1 % (0-14.5); WHITE BLOOD COUNT 8.5 10*3/uL (4.8-10.8)
[2018-03-14 03:19] LABS: PLATELET COUNT AUTOMATED 165 10*3/uL (130-400)
[2018-03-14 03:29] LABS: BUN 42 mg/dl (7-24); CHLORIDE 104 mmol/L (98-107); CREATININE 1.37 mg/dL (0.70-1.30); PHOSPHOROUS 3.8 mg/dL (2.5-4.9); POTASSIUM 3.6 mmol/L (3.5-5.1); SODIUM 135 mmol/L (136-145)
[2018-03-14 03:39] LABS: ATYPICAL LYMPHS 1 % (0-0); TOTAL CELLS COUNTED 100 #CELLS
[2018-03-14 03:41] LABS: DOHLE BODIES FEW; OVALOCYTES FEW; PLATELET SUFFICIENCY NORMAL (NORMAL)
[2018-03-15] VITALS (8 sets, daily range): BP systolic 94–155; BP diastolic 50–87
[2018-03-15 05:41] LABS: ALBUMIN 1.7 gm/dl (3.1-4.5); ALKALINE PHOSPHATASE 196 U/L (45-117); CHLORIDE 105 mmol/L (98-107); CREATININE 1.02 mg/dL (0.70-1.30); POTASSIUM 3.3 mmol/L (3.5-5.1); SGOT/AST 32 IU/L (3-35); SGPT/ALT 26 U/L (12-78); SODIUM 136 mmol/L (136-145)
[2018-03-15 05:44] LABS: BUN 25 mg/dl (7-24)
[2018-03-15 06:15] LABS: HEMATOCRIT 25.8 % (42.0-52.0); HEMOGLOBIN 8.4 g/dl (14.0-18.0); MEAN CELL VOLUME 94.2 fl (80.0-94.0); MEAN CORPUSCULAR HGB 30.7 pg (27.0-31.0); MEAN CORPUSCULAR HGB CONC 32.6 g/dl (33.0-37.0); MEAN PLATELET VOLUME 10.3 fl (9.6-12.3); PLATELET COUNT AUTOMATED 181 10*3/uL (130-400); RED BLOOD COUNT 2.74 10*6/uL (4.50-5.90); RED CELL DISTRI WIDTH 18.3 % (0-14.5); WHITE BLOOD COUNT 10.6 10*3/uL (4.8-10.8)
[2018-03-15 06:56] LABS: TOTAL CELLS COUNTED 100 #CELLS
[2018-03-15 06:57] LABS: OVALOCYTES FEW; PLATELET SUFFICIENCY NORMAL (NORMAL); TOXIC GRANULATION MODERATE
[2018-03-16] VITALS: BP 131/64
[2018-03-16 04:00] VITALS: BP 125/57
[2018-03-16 05:59] LABS: BUN 19 mg/dl (7-24); CHLORIDE 107 mmol/L (98-107); CREATININE 0.89 mg/dL (0.70-1.30); POTASSIUM 3.9 mmol/L (3.5-5.1); SODIUM 139 mmol/L (136-145)
[2018-03-16 06:00] LABS: HEMATOCRIT 25.2 % (42.0-52.0); MEAN CELL VOLUME 95.8 fl (80.0-94.0); MEAN CORPUSCULAR HGB 30.4 pg (27.0-31.0); MEAN CORPUSCULAR HGB CONC 31.7 g/dl (33.0-37.0); MEAN PLATELET VOLUME 9.5 fl (9.6-12.3); PLATELET COUNT AUTOMATED 159 10*3/uL (130-400); RED BLOOD COUNT 2.63 10*6/uL (4.50-5.90); RED CELL DISTRI WIDTH 18.5 % (0-14.5); WHITE BLOOD COUNT 11.3 10*3/uL (4.8-10.8)
[2018-03-16 07:17] LABS: OVALOCYTES MODERATE; PLATELET SUFFICIENCY NORMAL (NORMAL); TOTAL CELLS COUNTED 100 #CELLS
[2018-03-16 08:00] VITALS: BP 120/58
[2018-03-16 12:00] VITALS: BP 129/66
[2018-03-16 16:00] VITALS: BP 146/84
[2018-03-16 20:00] VITALS: BP 139/72
[2018-03-17] VITALS: BP 153/97
[2018-03-17 04:00] VITALS: BP 135/71
[2018-03-17 05:54] LABS: BUN 19 mg/dl (7-24); CHLORIDE 105 mmol/L (98-107); CREATININE 0.72 mg/dL (0.70-1.30); POTASSIUM 3.7 mmol/L (3.5-5.1); SODIUM 140 mmol/L (136-145)
[2018-03-17 06:02] LABS: HEMATOCRIT 25.6 % (42.0-52.0); HEMOGLOBIN 8.2 g/dl (14.0-18.0); MEAN CELL VOLUME 96.6 fl (80.0-94.0); MEAN CORPUSCULAR HGB 30.9 pg (27.0-31.0); MEAN PLATELET VOLUME 10.2 fl (9.6-12.3); PLATELET COUNT AUTOMATED 174 10*3/uL (130-400); RED BLOOD COUNT 2.65 10*6/uL (4.50-5.90); RED CELL DISTRI WIDTH 18.6 % (0-14.5); WHITE BLOOD COUNT 13.5 10*3/uL (4.8-10.8)
[2018-03-17 06:40] LABS: PLATELET SUFFICIENCY NORMAL (NORMAL); TOTAL CELLS COUNTED 100 #CELLS
[2018-03-17 06:41] LABS: OVALOCYTES MODERATE
[2018-03-17 08:00] VITALS: BP 130/80
[2018-03-17 12:00] VITALS: BP 138/74
[2018-03-17 16:00] VITALS: BP 140/71
[2018-03-17 20:00] VITALS: BP 137/75
[2018-03-18] VITALS: BP 143/76
[2018-03-18 06:41] LABS: HEMATOCRIT 26.9 % (42.0-52.0); HEMOGLOBIN 8.4 g/dl (14.0-18.0); MEAN CELL VOLUME 95.7 fl (80.0-94.0); MEAN CORPUSCULAR HGB 29.9 pg (27.0-31.0); MEAN CORPUSCULAR HGB CONC 31.2 g/dl (33.0-37.0); PLATELET COUNT AUTOMATED 164 10*3/uL (130-400); RED BLOOD COUNT 2.81 10*6/uL (4.50-5.90); RED CELL DISTRI WIDTH 18.1 % (0-14.5); WHITE BLOOD COUNT 14.2 10*3/uL (4.8-10.8)
[2018-03-18 07:04] LABS: PLATELET SUFFICIENCY NORMAL (NORMAL); POLYCHROMASIA SLIGHT; SCHISTOCYTES FEW; TOTAL CELLS COUNTED 100 #CELLS
[2018-03-18 07:04] LABS: BUN 21 mg/dl (7-24); CHLORIDE 108 mmol/L (98-107); CREATININE 0.68 mg/dL (0.70-1.30); POTASSIUM 3.5 mmol/L (3.5-5.1); SODIUM 142 mmol/L (136-145)
[2018-03-18 12:00] VITALS: BP 141/84
[2018-03-18 16:00] VITALS: BP 141/84
[2018-03-18 20:00] VITALS: BP 136/76
[2018-03-19] VITALS: BP 132/62
[2018-03-19 07:05] LABS: HEMATOCRIT 25.8 % (42.0-52.0); HEMOGLOBIN 8.4 g/dl (14.0-18.0); MEAN CELL VOLUME 95.2 fl (80.0-94.0); MEAN CORPUSCULAR HGB CONC 32.6 g/dl (33.0-37.0); MEAN PLATELET VOLUME 10.4 fl (9.6-12.3); PLATELET COUNT AUTOMATED 170 10*3/uL (130-400); RED BLOOD COUNT 2.71 10*6/uL (4.50-5.90); RED CELL DISTRI WIDTH 18.2 % (0-14.5); WHITE BLOOD COUNT 12.5 10*3/uL (4.8-10.8)
[2018-03-19 07:16] LABS: BUN 22 mg/dl (7-24); CHLORIDE 107 mmol/L (98-107); CREATININE 0.64 mg/dL (0.70-1.30); POTASSIUM 3.2 mmol/L (3.5-5.1); SODIUM 143 mmol/L (136-145)
[2018-03-19 07:32] LABS: OVALOCYTES FEW; PLATELET SUFFICIENCY NORMAL (NORMAL); POLYCHROMASIA SLIGHT; TOTAL CELLS COUNTED 100 #CELLS
[2018-03-19 08:00] VITALS: BP 122/60
[2018-03-19 12:02] VITALS: BP 138/86
[2018-03-19 16:00] VITALS: BP 116/69; BP 126/69
[2018-03-19 20:00] VITALS: BP 124/79
[2018-03-20] VITALS: BP 134/79
[2018-03-20 06:41] LABS: HEMATOCRIT 27.4 % (42.0-52.0); HEMOGLOBIN 8.7 g/dl (14.0-18.0); MEAN CELL VOLUME 96.5 fl (80.0-94.0); MEAN CORPUSCULAR HGB 30.6 pg (27.0-31.0); MEAN CORPUSCULAR HGB CONC 31.8 g/dl (33.0-37.0); MEAN PLATELET VOLUME 10.4 fl (9.6-12.3); PLATELET COUNT AUTOMATED 154 10*3/uL (130-400); RED BLOOD COUNT 2.84 10*6/uL (4.50-5.90); RED CELL DISTRI WIDTH 18.3 % (0-14.5)
[2018-03-20 07:01] LABS: BUN 22 mg/dl (7-24); CHLORIDE 108 mmol/L (98-107); CREATININE 0.67 mg/dL (0.70-1.30); POTASSIUM 3.1 mmol/L (3.5-5.1); SODIUM 145 mmol/L (136-145)
[2018-03-20 07:04] LABS: TOTAL CELLS COUNTED 100 #CELLS
[2018-03-20 07:05] LABS: OVALOCYTES MODERATE; PLATELET SUFFICIENCY NORMAL (NORMAL); TOXIC GRANULATION MODERATE
[2018-03-20 08:20] VITALS: BP 120/78
[2018-03-20 12:00] VITALS: BP 112/66
[2018-03-20 16:00] VITALS: BP 119/75
[2018-03-20 20:00] VITALS: BP 127/74
[2018-03-21] VITALS: BP 107/58
[2018-03-21 07:01] LABS: HEMATOCRIT 27.1 % (42.0-52.0); HEMOGLOBIN 8.6 g/dl (14.0-18.0); MEAN CELL VOLUME 98.2 fl (80.0-94.0); MEAN CORPUSCULAR HGB 31.2 pg (27.0-31.0); MEAN CORPUSCULAR HGB CONC 31.7 g/dl (33.0-37.0); MEAN PLATELET VOLUME 10.6 fl (9.6-12.3); PLATELET COUNT AUTOMATED 145 10*3/uL (130-400); RED BLOOD COUNT 2.76 10*6/uL (4.50-5.90); RED CELL DISTRI WIDTH 18.6 % (0-14.5); WHITE BLOOD COUNT 12.3 10*3/uL (4.8-10.8)
[2018-03-21 07:29] LABS: BASOPHILS 1 % (0-1); OVALOCYTES FEW; PLATELET SUFFICIENCY NORMAL (NORMAL); POLYCHROMASIA SLIGHT; TOTAL CELLS COUNTED 100 #CELLS
[2018-03-21 07:34] LABS: BUN 18 mg/dl (7-24); CHLORIDE 109 mmol/L (98-107); CREATININE 0.62 mg/dL (0.70-1.30); POTASSIUM 3.8 mmol/L (3.5-5.1); SODIUM 145 mmol/L (136-145)
[2018-03-21 08:00] VITALS: BP 128/86
[2018-03-21 12:00] VITALS: BP 106/70
[2018-03-21 16:00] VITALS: BP 101/48; BP 101/62
[2018-03-21 20:00] VITALS: BP 99/59
[2018-03-22] VITALS: BP 106/62
[2018-03-22 06:40] LABS: HEMATOCRIT 24.8 % (42.0-52.0); HEMOGLOBIN 7.9 g/dl (14.0-18.0); MEAN CORPUSCULAR HGB 31.2 pg (27.0-31.0); MEAN CORPUSCULAR HGB CONC 31.9 g/dl (33.0-37.0); MEAN PLATELET VOLUME 10.3 fl (9.6-12.3); PLATELET COUNT AUTOMATED 132 10*3/uL (130-400); RED BLOOD COUNT 2.53 10*6/uL (4.50-5.90); RED CELL DISTRI WIDTH 18.6 % (0-14.5); WHITE BLOOD COUNT 10.8 10*3/uL (4.8-10.8)
[2018-03-22 07:02] LABS: OVALOCYTES FEW; TOTAL CELLS COUNTED 100 #CELLS
[2018-03-22 07:03] LABS: BUN 19 mg/dl (7-24); CHLORIDE 107 mmol/L (98-107); CREATININE 0.65 mg/dL (0.70-1.30); MICROCYTOSIS SLIGHT; PLATELET SUFFICIENCY NORMAL (NORMAL); POLYCHROMASIA SLIGHT; POTASSIUM 3.5 mmol/L (3.5-5.1); SCHISTOCYTES FEW; SODIUM 140 mmol/L (136-145)
[2018-03-22 12:00] VITALS: BP 94/60
[2018-03-22 16:00] VITALS: BP 104/65
[2018-03-22 20:00] VITALS: BP 111/58
[2018-03-23] VITALS: BP 137/48
[2018-03-23 08:00] VITALS: BP 118/70
[2018-03-23 12:00] VITALS: BP 109/71
[2018-03-23 16:00] VITALS: BP 105/62
[2018-03-23 20:00] VITALS: BP 100/32; BP 107/63
[2018-03-24] VITALS: BP 111/58
[2018-03-24 07:14] LABS: HEMATOCRIT 24.9 % (42.0-52.0); HEMOGLOBIN 7.7 g/dl (14.0-18.0); MEAN CELL VOLUME 98.4 fl (80.0-94.0); MEAN CORPUSCULAR HGB 30.4 pg (27.0-31.0); MEAN CORPUSCULAR HGB CONC 30.9 g/dl (33.0-37.0); MEAN PLATELET VOLUME 11.3 fl (9.6-12.3); PLATELET COUNT AUTOMATED 132 10*3/uL (130-400); RED BLOOD COUNT 2.53 10*6/uL (4.50-5.90); RED CELL DISTRI WIDTH 18.4 % (0-14.5); WHITE BLOOD COUNT 8.5 10*3/uL (4.8-10.8)
[2018-03-24 07:34] LABS: BUN 18 mg/dl (7-24); CHLORIDE 105 mmol/L (98-107); CREATININE 0.66 mg/dL (0.70-1.30); POTASSIUM 3.7 mmol/L (3.5-5.1); SODIUM 139 mmol/L (136-145)
[2018-03-24 07:37] LABS: TOTAL CELLS COUNTED 100 #CELLS
[2018-03-24 07:38] LABS: PLATELET SUFFICIENCY NORMAL (NORMAL); POLYCHROMASIA SLIGHT
[2018-03-24 08:00] VITALS: BP 102/56
[2018-03-24 12:00] VITALS: BP 145/67
[2018-03-24 16:00] VITALS: BP 108/45
[2018-03-24 20:00] VITALS: BP 113/69
[2018-03-25] VITALS: BP 114/64
[2018-03-25 08:00] VITALS: BP 127/78
[2018-03-25 12:00] VITALS: BP 121/62
[2018-03-25 16:00] VITALS: BP 106/55
[2018-03-25 20:00] VITALS: BP 122/59
[2018-03-26] VITALS: BP 118/61
[2018-03-26 08:00] VITALS: BP 132/70
[2018-03-26 11:20] VITALS: BP 130/64
[2018-03-26 16:00] VITALS: BP 127/63
[2018-03-26 20:00] VITALS: BP 123/66
[2018-03-27] VITALS: BP 129/64
[2018-03-27 06:27] LABS: HEMATOCRIT 24.6 % (42.0-52.0); HEMOGLOBIN 7.5 g/dl (14.0-18.0); MEAN CELL VOLUME 98.4 fl (80.0-94.0); MEAN CORPUSCULAR HGB CONC 30.5 g/dl (33.0-37.0); MEAN PLATELET VOLUME 10.8 fl (9.6-12.3); PLATELET COUNT AUTOMATED 157 10*3/uL (130-400); RED CELL DISTRI WIDTH 18.4 % (0-14.5)
[2018-03-27 07:01] LABS: BUN 8 mg/dl (7-24); CHLORIDE 104 mmol/L (98-107); CREATININE 0.68 mg/dL (0.70-1.30); POTASSIUM 3.3 mmol/L (3.5-5.1); SODIUM 139 mmol/L (136-145)
[2018-03-27 07:05] LABS: PLATELET SUFFICIENCY NORMAL (NORMAL); TOTAL CELLS COUNTED 100 #CELLS
[2018-03-27 07:06] LABS: OVALOCYTES FEW; POLYCHROMASIA SLIGHT
[2018-03-27 07:35] VITALS: BP 115/63
[2018-03-27] MEDS ORDERED: VANCOMYCIN250 MG/2.5 PO (11:02)
[2018-03-27] MEDS ORDERED: SERTRALINE HYDR25 MG PO (11:02)
[2018-03-27] MEDS ORDERED: DILTIAZEM HCL90 MG PO (11:02)
[2018-03-27] MEDS ORDERED: LACTINEX 0.2 MG1 TAB PO (11:02)
[2018-03-27] MEDS ORDERED: HYDROCODONE-AC1 EAC2 PO (11:12)
[2018-03-27] MEDS ORDERED: XANAX0.25 MG PO (11:12)
[2018-03-27 12:00] VITALS: BP 108/51
== END 2018-03-27 15:45 | disposition other institution (70) | DRG 871 ==
LOC: ED 11:12 → EDHOLD 14:09 → ICCU 14:09 → 5E 03-17 14:58
PROVIDERS: Family Medicine; Internal Medicine; Internal Medicine Nephrology; Student in an Organized Health Care Education/Training Program
PROC: 30233N1 Transfusion of Nonautologous Red Blood Cells into Peripheral Vein, Percutaneous Approach (ICD-10-PCS; principal; 2018-03-13)
DX: A41.51 Sepsis due to Escherichia coli [E. coli] (principal); N17.0 Acute kidney failure with tubular necrosis; J15.1 Pneumonia due to Pseudomonas; J69.0 Pneumonitis due to inhalation of food and vomit; R65.21 Severe sepsis with septic shock; J96.01 Acute respiratory failure with hypoxia; I50.22 Chronic systolic (congestive) heart failure; E87.1 Hypo-osmolality and hyponatremia; A04.72 Enterocolitis due to Clostridium difficile, not specified as recurrent; N39.0 Urinary tract infection, site not specified; C18.9 Malignant neoplasm of colon, unspecified; C78.7 Secondary malignant neoplasm of liver and intrahepatic bile duct; C79.51 Secondary malignant neoplasm of bone; E86.1 Hypovolemia; D64.9 Anemia, unspecified; E86.0 Dehydration; R74.0 Nonspecific elevation of levels of transaminase and lactic acid dehydrogenase [LDH]; E87.8 Other disorders of electrolyte and fluid balance, not elsewhere classified; E78.5 Hyperlipidemia, unspecified; E03.9 Hypothyroidism, unspecified; E55.9 Vitamin D deficiency, unspecified; E53.8 Deficiency of other specified B group vitamins; Z66 Do not resuscitate; Z51.5 Encounter for palliative care; I25.10 Atherosclerotic heart disease of native coronary artery without angina pectoris; F41.9 Anxiety disorder, unspecified; L89.322 Pressure ulcer of left buttock, stage 2; N40.0 Benign prostatic hyperplasia without lower urinary tract symptoms; L89.312 Pressure ulcer of right buttock, stage 2; I11.0 Hypertensive heart disease with heart failure; I48.0 Paroxysmal atrial fibrillation; B96.20 Unspecified Escherichia coli [E. coli] as the cause of diseases classified elsewhere; E87.5 Hyperkalemia; F32.9 Major depressive disorder, single episode, unspecified; Z88.1 Allergy status to other antibiotic agents; Z82.49 Family history of ischemic heart disease and other diseases of the circulatory system; Z79.01 Long term (current) use of anticoagulants; Z79.82 Long term (current) use of aspirin

== ENCOUNTER 2018-04-15 11:10 | Inpatient (IN) | payer MEDICARE ==
[~2018-04-15] VITALS: Ht 175.2 cm; Wt 84.9 kg
[2018-04-15] VITALS (21 sets, daily range): BP systolic 80–107; BP diastolic 48–76
--- NOTE | ~2018-04-15 | PR ---
[place], [place] PROGRESS NOTE [id number] UN[facility] #: [id number] ROOM: 509 DOCTOR: HARLAN ROSAS MD BIRTHDATE: [birth year] DOS: SUBJECTIVE: The patient continues to complain of severe abdominal pain, especially when he bends forward. I will x-ray his back and give him Vicodin for pain control. OBJECTIVE: GENERAL APPEARANCE: The patient is alert and oriented x 3, in no visible distress. Generalized weakness. VITAL SIGNS: Blood pressure 116/80, heart rate of 118 beats per minute, breathing 20 times per minute, afebrile. HEENT AND NECK: Exam within normal limits. CARDIOVASCULAR SYSTEM: Heart rate is regular in rate and rhythm. S1 and S2 normally audible. LUNGS: Clear to auscultation. ABDOMEN: Soft, nontender. No obvious organomegaly. Bowel sounds are present. EXTREMITIES: Without significant cyanosis or edema. IMPRESSION: 1. The patient's colon cancer metastatic to the liver already evaluated at [facility] according to patient's and told no further treatment was possible after he failed chemotherapy. This is all according to his . 2. Abdominal pains, possibly from liver mets. I will start him on Vicodin and encourage him to maintain a comfort care code status for end-of-life care and x-ray his thoracic spine to look for any metastasis because his pains are severe and he does not want to move. The patient has been kept on physical therapy. 3. Advanced adult failure to thrive, generalized weakness. The patient to work with physical therapy. 4. Generalized anxiety disorder, treated with Xanax as needed. 5. Benign essential hypertension, treated and controlled. 6. Chronic atrial fibrillation and tachycardia, heart rates being controlled with amiodarone and digoxin. He was tachycardic today. HARLAN ROSAS MD CM:PNTRANS [phone] HARLAN ROSAS MD 04/17/18 1312 interface
--- NOTE | ~2018-04-15 | EKG ---
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
--- NOTE | ~2018-04-15 | PR ---
[place], [place] PROGRESS NOTE NAME: MELITA SHIRLEY UNIT #: [id number] ROOM: 509 DOCTOR: HARLAN ROSAS MD BIRTHDATE: [birth year] DOS: 04/18/2018 SUBJECTIVE: The patient is feeling somewhat better, but he still has upper abdominal pains only when he tries to get up or moves and he has been receiving Vicodin for this. OBJECTIVE: GENERAL APPEARANCE: The patient is alert and oriented x 3, in no visible distress. Generalized weakness. HEENT AND NECK: Exam within normal limits. CARDIOVASCULAR SYSTEM: Heart rate is regular in rate and rhythm. S1 and S2 normally audible. LUNGS: Clear to auscultation. ABDOMEN: Soft, nontender. No obvious organomegaly. Bowel sounds are present. EXTREMITIES: Without significant cyanosis or edema. ASSESSMENT: 1. The patient with metastatic colon cancer with metastasis to the liver with significant abdominal pains only with flexion. He has some mild compression fracture on x-ray of the thoracic spine at T12 and L4 and is being treated with Vicodin. 2. Anemia. Hemoglobin at 8.8 after blood transfusion. 3. Chronic atrial fibrillation. The patient anticoagulated with Xarelto, which may have to be stopped if he continues to drop his hemoglobin. 4. Poor prognosis. The patient needs to be maintained for comfort care measures and end of life care has been discussed with the patient and family. 5. Generalized anxiety disorder, treated with Xanax as needed. 6. Advance adult failure to thrive and generalized weakness. The patient working with physical therapy. HARLAN ROSAS MD CM:PNTRANS [phone] HARLAN ROSAS MD 04/19/18 1417 interface
--- NOTE | ~2018-04-15 | PR ---
[place], [place] PROGRESS NOTE [id number] #: [id number] ROOM: 509 DOCTOR: ROBB JIMÉNEZ MD BIRTHDATE: [birth year] DOS: 04/18/2018 CARDIOLOGY PROGRESS NOTE SUBJECTIVE: The patient was seen at his bedside today 04/18/2018 for followup of his atrial fibrillation and marginal blood pressure. He was asleep when I entered the room and there was no family in attendance today. He just feels tired and denies other complaints at this time. PHYSICAL EXAMINATION: VITAL SIGNS: His pulse is 100-110 and irregularly irregular. Blood pressure is 100/63. He is afebrile. He weighs 83.1 kilograms. NECK: Supple. He has no jugular distention. Carotids are full. LUNGS: Respirations are unlabored at rest. HEART: Has an irregularly irregular rhythm, but no murmurs or gallops. EXTREMITIES: Showed no edema. LABORATORY DATA: Hemoglobin today is 8.8, down from 9.3 yesterday. IMPRESSION: 1. Atrial fibrillation with rapid ventricular response. 2. Anemia due to blood loss. 3. Marginal blood pressure due to anemia, chronic illnesses and medications. 4. Colon cancer with metastases to liver and bone. PLAN: I stopped his TIN inhibitor today and will gradually increase his beta amarilis. Hopefully, we can wean him from IV diltiazem. Digoxin level is therapeutic at 1.02 and will not be changed. No other cardiac workup is planned at this time given his underlying medical problems. I thank Dr. Woodall for asking our advice regarding his care. ROBB JIMÉNEZ MD CM:PNTRANS [id number] ROBB JIMÉNEZ MD 04/19/18 0538 interface
--- NOTE | ~2018-04-15 | PR ---
[place], [place] PROGRESS NOTE NAME: MELITA SHIRLEY UNIT #: [id number] ROOM: 509 DOCTOR: ROBB JIMÉNEZ MD BIRTHDATE: [birth year] DOS: 04/17/2018 CARDIOLOGY PROGRESS NOTE SUBJECTIVE: The patient was seen at his bedside today with his in attendance. He is an 82-year-old man whom we are seeing for atrial fibrillation with rapid ventricular response. His underlying disease is colon cancer with metastases to the liver and bones. The patient came into the hospital on this occasion feeling weak with hemoglobin of 7.2. He has received 2 units of blood and today his hemoglobin is 9.3. He does feel somewhat better. He does have some abdominal pain; however, but pain medications appear to be handling that. For cardiac standpoint, His heart rate has been fast and has required IV diltiazem for control. His blood pressure has been marginal, but has improved since he has been transfused. PHYSICAL EXAMINATION: VITAL SIGNS: Today, his pulse is 85-100 and irregularly irregular. Blood pressure is 90/60. NECK: Supple. He has no jugular distention. Carotids are full. LUNGS: Respirations are unlabored at rest. HEART: Has an irregularly irregular rhythm. He has no murmurs or gallops. ABDOMEN: Soft and normoactive. EXTREMITIES: Showed no edema. I reviewed his medications. He is on aspirin along with rivaroxaban. At his age, aspirin probably is not indicated and probably does contribute to his bleeding; therefore, I stopped the aspirin. He is also on an TIN inhibitor. He shows no signs of heart failure and therefore I stopped the TIN inhibitor, but increased his beta amarilis. Hopefully, this will allow better control of his heart rate. We will also check a digoxin level in the morning. IMPRESSION: 1. Atrial fibrillation with rapid ventricular response. 2. Anemia due to blood loss. 3. Colon cancer with metastases to liver and bone. PLAN: As noted above. I did discuss this at length with his at the bedside. I thank Dr. Woodall for asking our advice regarding the patient's care. [place], [place] PROGRESS NOTE NAME: MELITA SHIRLEY UNIT #: [id number] ROOM: 509 DOCTOR: ROBB JIMÉNEZ MD BIRTHDATE: [birth year] ROBB JIMÉNEZ MD CM:PNTRANS [id number] ROBB JIMÉNEZ MD 04/22/18 0626 interface
--- NOTE | ~2018-04-15 | WRIGHTHP ---
[place], [place] PATIENT HISTORY AND PHYSICAL EXAM NAME: MELITA SHIRLEY [facility] #: [id number] UNIT #: [id number] ROOM: 509 DOCTOR: HARLAN ROSAS MD BIRTHDATE: [birth year] DOS: 04/15/2018 HISTORY OF PRESENT ILLNESS: The patient is an 82-year-old gentleman with a past medical history of: 1. Chronic atrial fibrillation with rapid ventricular response. 2. Chronic atrial fibrillation. 3. Hypothyroidism,. 4. Mixed hyperlipidemia. 5. Chronic systolic type congestive heart failure. 6. Coronary artery disease with history of stent placement. 7. History of Clostridium difficile colitis. 8. Generalized weakness and adult failure to thrive. 9. History of colon cancer with liver mets with chemotherapy in the past. The patient presented to the Emergency Department at [facility] today with increased weakness and feeling unwell from [facility]. The patient was hypotensive with a blood pressure of 100/60 and heart rate of more than 120. The patient was found to be anemic with hemoglobin of 7.2, and considering that he has colon cancer, he was considered to have active acute GI bleed and scheduled for blood transfusion and admitted for further management. No complaints of any chest pain, increased shortness of breath, no other GI or urinary symptoms. REVIEW OF SYSTEMS: RESPIRATORY: No increasing shortness of breath. GASTROINTESTINAL: History of colon cancer. CARDIOVASCULAR SYSTEM: No chest pains or palpitations. FAMILY HISTORY: Noncontributory. HOME MEDICATIONS: Xanax, amiodarone, aspirin, Coreg, lisinopril, mirtazapine, Xarelto, and Flomax. ALLERGIES: KNOWN ALLERGIES TO CEPHALEXIN. PHYSICAL EXAMINATION: GENERAL: Alert and oriented, not a good historian, in no visible distress, generalized weakness. HEENT AND NECK: Extraocular movements are intact. Sclerae are anicteric. Oral mucosa is moist and clean. No obvious facial weakness. Neck is supple without any lymphadenopathy. No thyromegaly. No JVD. No carotid arterial bruits. LUNGS: Clear to auscultation. No wheezing. No rhonchi. CARDIOVASCULAR SYSTEM: Heart rate is regular in rate and rhythm. S1 and S2 normally audible. No significant murmur or any other abnormal cardiac sounds. ABDOMEN: Soft, nontender. No obvious organomegaly. Bowel sounds are present. No obvious herniation. EXTREMITIES: Without significant cyanosis or edema. Warm to touch. CENTRAL NERVOUS SYSTEM: Alert and oriented x 3. Cranial nerves II-XII are intact. Speech is normal. The patient is able to move all extremities. Normal muscle strength. Deep tendon reflexes are equal on both sides. Plantars were downgoing. [place], [place] PATIENT HISTORY AND PHYSICAL EXAM NAME: MELITA SHIRLEY UNIT #: [id number] ROOM: [facility] DOCTOR: HARLAN ROSAS MD BIRTHDATE: [birth year] IMPRESSION: 1. The patient with anemia and drop in hemoglobin with history of colon cancer and anticoagulation with Xarelto, has been admitted and being transfused with blood and hemoglobins to be monitored. 2. Benign essential hypertension to be continued on Coreg and lisinopril. Blood pressures to be monitored and treated. The patient to be kept on a gambling monitor. 3. Generalized anxiety disorder. I will continue Xanax as needed. The patient is also on mirtazapine. 4. Adult failure to thrive, generalized weakness. The patient coming from [facility]. I will start the patient on physical therapy and rehabilitation. 5. Benign prostatic hypertrophy and urine retention to be treated with Flomax, which is being continued. 6. Hypotension and tachycardia related to atrial fibrillation, anemia, dehydration, and adult failure to thrive. I will consult Cardiology to follow him. HARLAN ROSAS MD CM:HISPHYS:PATIENT HISTORY AND PHYSICAL EXAMINATION 18 [phone] HARLAN ROSAS MD 04/15/182046 interface
--- NOTE | ~2018-04-15 | PR ---
[place], [place] PROGRESS NOTE [id number] #: [id number] ROOM: 509 DOCTOR: HARLAN ROSAS MD BIRTHDATE: [birth year] DOS: 04/16/2018 SUBJECTIVE: The patient is complaining of severe abdominal pains only when he tries to get up, which is off and on all day and he wants to be treated for it to keep him more comfortable. OBJECTIVE: GENERAL APPEARANCE: The patient is alert and oriented x 3, in no visible distress. Generalized weakness. VITAL SIGNS: Blood pressure 114/71, heart rate of 108 beats per minute, breathing 18 times per minute, temperature of 98 degrees Fahrenheit. HEENT AND NECK: Exam within normal limits. CARDIOVASCULAR SYSTEM: Heart rate is regular in rate and rhythm. S1 and S2 normally audible. LUNGS: Clear to auscultation. ABDOMEN: Soft, nontender. No obvious organomegaly. Bowel sounds are present. EXTREMITIES: Without significant cyanosis or edema. IMPRESSION: 1. The patient with anemia and drop in hemoglobin. Hemoccult stools, as I ordered, have not been performed, but hemoglobin improved to 8.7 after blood transfusion. 2. Adult failure to thrive with history of colon cancer and now severe abdominal pains when he moves. The patient is not on any powerful pain medication at this time. I will start him on Vicodin to see if that helps. 3. Chronic atrial fibrillation with tachycardia. Heart rates have been controlled with amiodarone and digoxin. 4. Benign essential hypertension, treated and controlled. 5. Generalized anxiety disorder, treated with Xanax as needed and also takes mirtazapine. 6. Adult failure to thrive with generalized weakness. The patient will be sent back to [facility] once his heart rates are controlled. Cardiologists are following. HARLAN ROSAS MD CM:PNTRANS [id number] HARLAN ROSAS MD 04/17/18 0746 interface
--- NOTE | ~2018-04-15 | CON ---
[place], [place] REPORT OF CONSULTATION NAME[id number] UNIT #: [id number] ROOM: 509 DOCTOR: LANA PIERRE MD BIRTHDATE: [birth year] DOS: 04/16/2018 CARDIOLOGY CONSULT REASON FOR CONSULTATION: Atrial fibrillation with rapid ventricular rate. HISTORY OF PRESENT ILLNESS: The patient is an 82-year-old patient with history of chronic atrial fibrillation, heart failure, chronic kidney disease, anemia, coronary artery disease, colon cancer, history of lymphoma, anxiety, benign prostatic enlargement, was presented to the Emergency Room for "not feeling well, fatigued and weak." He was found to have low blood pressure as well as anemic and also atrial fibrillation with rapid ventricular rate. He was admitted to the hospital and Cardiology consulted for any further recommendation. He was transfused due to his significant anemia. His rates are controlled with IV digoxin and additional dose of Cardizem. He denies any chest pain or palpitations. No dizziness, no syncope, no PND, no orthopnea. No nausea, vomiting, diarrhea. No fever and chills. No blurred vision or double vision. No headache. No neurologic symptoms. No musculoskeletal symptoms. REVIEW OF SYSTEMS: Review of the 10-system negative except as mentioned above. PAST MEDICAL HISTORY: 1. Chronic atrial fibrillation. 2. Hypertension. 3. Anemia. 4. Anxiety. 5. Benign prostatic hypertrophy. 6. Coronary artery disease. 7. History of congestive heart failure. PAST SURGICAL HISTORY: Reviewed. ALLERGIES: The patient is allergic to KEFLEX. HOME MEDICATIONS: Reviewed. FAMILY HISTORY: Nil contributory. PHYSICAL EXAMINATION: VITAL SIGNS: Blood pressure 120/80, pulse 120, respiratory rate is 20, weight 179 pounds, BMI 26.5. GENERAL: The patient is alert, comfort, no acute distress. HEENT: Pupils are equal, no jaundice. Tongue was moist and pharynx clear. NECK: Supple, no distended neck veins, no carotid bruit. CHEST: Symmetrical, nontender. LUNGS: Few scattered rhonchi, but good air entry bilaterally. HEART: Irregularly irregular, grade 1/6 systolic murmur. ABDOMEN: Benign, nontender. Bowel sounds normal. EXTREMITIES: Showed no edema. Distal pulses palpable. SKIN: Warm and dry. No cyanosis, no clubbing. [place], [place] REPORT OF CONSULTATION NAME: MELITA SHIRLEY UNIT #: [id number] ROOM: 509 DOCTOR: IGNACIO MUNOZ,LANA BIRTHDATE: [birth year] RECTAL: Deferred. GENITOURINARY: Deferred. NEUROLOGIC: The patient is alert, oriented. No focal neurologic deficit. PSYCHIATRIC: The patient is alert with good mood and affect. REVIEW OF THE DIAGNOSTIC TESTS: EKG showed atrial fibrillation with rapid ventricular rate with inferior wall myocardial infarction, anteroseptal myocardial infarction. CBC, chemistry and cardiac enzymes reviewed. WBC count 8.8 thousand, hemoglobin 8.7, platelets 215,000. Potassium 4.2, BUN 30, creatinine 0.94. Troponins are negative. IMPRESSION: 1. Atrial fibrillation with rapid ventricular rate possibly due to his anemia and subsequent hypoxia. 2. Anemia. 3. Hypertension. 4. Coronary artery disease. 5. Dyslipidemia. 6. Anxiety. RECOMMENDATIONS: 1. Rate control with digoxin and Cardizem. Continue his amiodarone and Coreg. The patient will be started on digoxin 0.125 mg daily. 2. The patient received packed red blood cell transfusion. Try to keep hemoglobin greater than 8 grams. 3. Monitor his daily weights, ins and outs as well as renal function. 4. Continue Xarelto oral anticoagulation for his chronic atrial fibrillation. 5. If the patient developed significant bruising or recurrent anemia, consider discontinuing his aspirin. 6. There is no family at bedside at the time of my examination. LANA PIERRE MD CM:CONSTR:REPORT OF CONSULTATION 2204 04/17/18 2030 interface
--- NOTE | ~2018-04-15 | DS ---
[place], [place] DISCHARGE SUMMARY NAME[facility] [id number] UNIT #: [id number] ROOM: 509 DOCTOR: HARLAN ROSAS MD BIRTHDATE: [birth year] DOS: 04/19/2018 DISCHARGE DIAGNOSES: 1. Chronic atrial fibrillation with rapid ventricular response. 2. Colon cancer and blood loss anemia. 3. 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 4. Abdominal pain when the patient tries to sit up, now controlled with Vicodin. 5. Generalized anxiety disorder. 6. 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 The patient with blood loss anemia with history of colon cancer and heme-positive stools, status post blood transfusion, hemoglobin is stable at this time. 7. Benign essential hypertension. The patient's blood pressure is staying on the lower side. Blood pressure medications readjusted to control his heart rate. Lisinopril was stopped. The patient on Cardizem and Coreg now. 8. Generalized anxiety disorder, treated with Xanax as needed. 9. Advanced adult failure to thrive and poor long-term prognosis because of the cancer of the colon, which is metastatic to the liver and according to the patient's , he has not recommended any further chemotherapy or any other treatment from [facility] where he was last evaluated. 10. Benign prostatic hypertrophy and urine retention treated with Flomax, asymptomatic. The patient with some abdominal pains, especially when he tries to get up, which were severe, are now much better controlled with Vicodin, which will be continued. X-ray of the thoracic spine showed minor compression at T12 and L4, which may also be causing pain. LABORATORY DATA: Hemoglobin of 9. X-ray of the thoracic spine as mentioned above. Stool for blood was positive, iFOBT. DISCHARGE MANAGEMENT: Diltiazem CD 120 mg a day, Coreg 12.5 mg every 8 hours, digoxin 125 mcg daily, Xarelto 15 mg daily, Flomax 0.4 mg daily, Tylenol 1000 mg every 6 hours straight, Vicodin 1 tablet 3 times a day as needed for pain, Xanax 0.25 mg t.i.d. p.r.n. for anxiety. [place], [place] DISCHARGE SUMMARY NAME: MELITA SHIRLEY UNIT #: [id number] ROOM: 509 DOCTOR: RALPH MUNOZ,HARLAN Pérez BIRTHDATE: [birth year] HARLAN ROSAS MD CM:SANDER [id number] HARLAN ROSAS MD 04/19/18 1258 interface
[~2018-04-15 11:10] MED LIST changes: +DILTIAZEM HCL90 MG PO; +HYDROCODONE-AC1 EAC2 PO; +IMODIUM A-D2 M2 PO; +LACTINEX 0.2 MG1 TAB PO; +REMERON15 M2 PO; +SERTRALINE HYDR25 MG PO; +VANCOMYCIN250 MG/2.5 PO
[2018-04-15 12:17] LABS: HEMATOCRIT 23.9 % (42.0-52.0); HEMOGLOBIN 7.2 g/dl (14.0-18.0); MEAN CELL VOLUME 95.2 fl (80.0-94.0); MEAN CORPUSCULAR HGB 28.7 pg (27.0-31.0); MEAN CORPUSCULAR HGB CONC 30.1 g/dl (33.0-37.0); MEAN PLATELET VOLUME 10.4 fl (9.6-12.3); PLATELET COUNT AUTOMATED 205 10*3/uL (130-400); RED BLOOD COUNT 2.51 10*6/uL (4.50-5.90); WHITE BLOOD COUNT 8.7 10*3/uL (4.8-10.8)
[2018-04-15 12:36] LABS: ALBUMIN 1.7 gm/dl (3.1-4.5); ALKALINE PHOSPHATASE 550 U/L (45-117); BUN 35 mg/dl (7-24); CHLORIDE 109 mmol/L (98-107); CREATININE 0.99 mg/dL (0.70-1.30); POTASSIUM 4.1 mmol/L (3.5-5.1); SGOT/AST 103 IU/L (3-35); SGPT/ALT 36 U/L (12-78); SODIUM 139 mmol/L (136-145); TOTAL PROTEIN 5.3 gm/dL (6.4-8.2)
[2018-04-15 12:37] LABS: TROPONIN I < 0.015 ng/ml (<0.045)
[2018-04-15 12:39] LABS: TOTAL CELLS COUNTED 100 #CELLS
[2018-04-15 12:40] LABS: PLATELET SUFFICIENCY NORMAL (NORMAL); SCHISTOCYTES FEW
[2018-04-15 12:43] LABS: BILIRUBIN NEGATIVE (NEGATIVE); BLOOD NEGATIVE (NEGATIVE); CLARITY SL CLOUDY (CLEAR); COLOR YELLOW (YELLOW); GLUCOSE NEGATIVE (NEGATIVE); KETONE NEGATIVE (NEGATIVE); LEUKO ESTERASE NEGATIVE (NEGATIVE); NITRITE NEGATIVE (NEGATIVE); UROBILINOGEN 0.2 E.U./dl (0.2-1.0)
[2018-04-15 12:58] LABS: BACTERIA TRACE; CALCIUM OXALATE CRYSTALS 2+; MUCOUS TRACE; RBC 0-2 rbc/hpf (0-2)
--- NOTE | 2018-04-15 17:40 | NUR ---
A 82 YEAR OLD MALE PATIENT, admitted to [facility], under the services of Dr. RALPH MUNOZ,[facility] with a diagnosis of ANEMIA, COLON CANCER METASTASIZED TO LIVER. Chief complaint is LOW BLOOD PRESSURE AT HALFWAY. Patient arrived via STRETCHER WITH RN from ER. Monitor applied. Initial assessment completed. Vital signs taken and recorded. See assessment for past medical history, medications and allergies. Patient and/or family oriented to unit. [address] visitation policy reviewed. Clothing/patient valuable form completed. KEELY CORDOVA
--- NOTE | 2018-04-15 18:00 | NUR ---
DR ROSAS MADE AWARE OF ADMISSION. STATES HE WILL SEE PATIENT IN A LITTLE BIT
--- NOTE | 2018-04-15 18:30 | NUR ---
DR ROSAS IN WITH PATIENT AT THIS TIME.
[2018-04-15] MEDS ORDERED: AMIODARONE HCL400 MG PO (18:52)
[2018-04-15] MEDS ORDERED: MIRTAZAPINE7.5 MG PO (18:53)
--- NOTE | 2018-04-15 19:00 | NUR ---
BLOOD TRANFUSION FINISHED AT THIS TIME
--- NOTE | 2018-04-15 19:21 | NUR ---
CONSULT CALLED TO DR JIMÉNEZ ANSWERNG SERVICE. DR PIERRE IS COMPENSATION AND BENEFITS MANAGER AT THIS TIME AND STATES THEY WILL SEE PATIENT IN THE AM
[2018-04-16] VITALS (8 sets, daily range): BP systolic 99–120; BP diastolic 58–81
[2018-04-16 06:33] LABS: HEMATOCRIT 28.2 % (42.0-52.0); HEMOGLOBIN 8.7 g/dl (14.0-18.0); MEAN CELL VOLUME 95.3 fl (80.0-94.0); MEAN CORPUSCULAR HGB 29.4 pg (27.0-31.0); MEAN CORPUSCULAR HGB CONC 30.9 g/dl (33.0-37.0); MEAN PLATELET VOLUME 10.4 fl (9.6-12.3); PLATELET COUNT AUTOMATED 215 10*3/uL (130-400); RED BLOOD COUNT 2.96 10*6/uL (4.50-5.90); RED CELL DISTRI WIDTH 17.7 % (0-14.5); WHITE BLOOD COUNT 8.8 10*3/uL (4.8-10.8)
[2018-04-16 06:47] LABS: BUN 30 mg/dl (7-24); CHLORIDE 109 mmol/L (98-107); CREATININE 0.94 mg/dL (0.70-1.30); POTASSIUM 4.2 mmol/L (3.5-5.1); SODIUM 140 mmol/L (136-145)
[2018-04-16 07:13] LABS: TOTAL CELLS COUNTED 100 #CELLS
[2018-04-16 07:14] LABS: PLATELET SUFFICIENCY NORMAL (NORMAL); POLYCHROMASIA SLIGHT; SCHISTOCYTES FEW
--- NOTE | 2018-04-16 08:14 | NUR ---
PT CURRENTLY ALERT AND ORIENTED X3. FORGETFUL AT TIMES. ROUTINE 10AM MEDS GIVEN AT THIS TIME. A-FIB PER CM. HR 120-140'S. WILL MONITOR HR. CALL LIGHT WITHIN REACH. BP 120/80. BED ALARM MAINTAINED FOR SAFETY.
--- NOTE | 2018-04-16 08:25 | NUR ---
PAGED AT THIS TIME REGARDING HR 130-140'S AT REST. AWAITING RETURN PHONE CALL.
--- NOTE | 2018-04-16 08:33 | NUR ---
RETURNED CALL. NEW ORDERS RECEIVED.
--- NOTE | 2018-04-16 09:06 | NUR ---
IV DIG AND PO CARDIZEM GIVEN AT THIS TIME PER ORDER FOR HR 130-140'S. WILL MONITOR EFFECTIVENESS. PT RESTING QUIETLY IN BED. CALL LIGHT WITHIN REACH.
--- NOTE | 2018-04-16 10:58 | NUR ---
HR 115-120'S. WILL CONTINUE TO MONITOR.
--- NOTE | 2018-04-16 11:30 | NUR ---
TYLENOL EFFECTIVE PER PT. WILL CONTINUE TO MONITOR.
--- NOTE | 2018-04-16 12:20 | NUR ---
PHYSICAL THERAPY Patient evaluated on 5, full evaluation to follow. Continue with PT as per plan of care with fall, mod (A) and alarm precautions. Will require return to SNF. PAtient is high complexity via chart review, tests and evaluation: [id number]. Thank you for this referral. Jade Dominguez,PT
--- NOTE | 2018-04-16 13:25 | NUR ---
HR NOW 100-115. WILL CONTINUE TO MONITOR.
--- NOTE | 2018-04-16 13:33 | NUR ---
IN TO SEE PATIENT REGARDING CONSULT.
--- NOTE | 2018-04-16 14:33 | NUR ---
PHYSICAL THERAPY Patient was fatigued and not feeling well. Patient would like therapist to come back tommorrow morning. Will check back with patient in AM tommorrow. Patient declined therapy due to not feeling well. OBDULIO OROPEZA GEOPHYSICAL DATA TECHNICIAN
--- NOTE | 2018-04-16 18:46 | NUR ---
NOTIFIED REGARDING HR 115-130'S AT REST. NEW ORDERS RECEIVED.
--- NOTE | 2018-04-16 19:19 | NUR ---
CARDIZEM GTT INITIATED AT THIS TIME PER ORDER. CARDIZEM BOLUS GIVEN PRIOR. VSS. BP 114/71. HR 130'S. WILL CONTINUE TO MONITOR. AT BEDSIDE. CALL LIGHT WITHIN REACH.
--- NOTE | 2018-04-16 19:58 | NUR ---
PT RESTING IN BED WITH SPOUSE AT BEDSIDE. NO ACUTE DISTRESS NOTED AT THIS TIME. RESPS EASY AND REG. PT VOICES NO C/O CURRENTLY. CARDIZEM INFUSING PER MD ORDER. CALL LIGHT IN REACH.
[2018-04-17] VITALS (12 sets, daily range): BP systolic 90–124; BP diastolic 40–86
[2018-04-17 07:06] LABS: HEMATOCRIT 30.6 % (42.0-52.0); HEMOGLOBIN 9.3 g/dl (14.0-18.0); MEAN CORPUSCULAR HGB 28.9 pg (27.0-31.0); MEAN CORPUSCULAR HGB CONC 30.4 g/dl (33.0-37.0); MEAN PLATELET VOLUME 10.3 fl (9.6-12.3); PLATELET COUNT AUTOMATED 247 10*3/uL (130-400); RED BLOOD COUNT 3.22 10*6/uL (4.50-5.90); RED CELL DISTRI WIDTH 17.7 % (0-14.5); WHITE BLOOD COUNT 10.2 10*3/uL (4.8-10.8)
[2018-04-17 07:17] LABS: BUN 28 mg/dl (7-24); CHLORIDE 110 mmol/L (98-107); POTASSIUM 4.3 mmol/L (3.5-5.1); SODIUM 142 mmol/L (136-145)
--- NOTE | 2018-04-17 07:35 | NUR ---
24 HR chart check completed.
--- NOTE | 2018-04-17 08:00 | NUR ---
Patient resting quietly with no c/o discomfort. Respirations easy and regular. Vital signs stable. No overt distress. YAW WHALEN
[2018-04-17 08:08] LABS: PLATELET SUFFICIENCY NORMAL (NORMAL); POLYCHROMASIA SLIGHT; TOTAL CELLS COUNTED 100 #CELLS
--- NOTE | 2018-04-17 09:49 | NUR ---
Renal dosing review: may increase patient to 20 mg Xarelto daily based on CrCl of 63 mls/min if clinically feasible. Thanks, Stephen Zapien, PharmD, [facility]
--- NOTE | 2018-04-17 10:19 | NUR ---
PHYSICAL THERAPY Patient is eating breakfast at this time. Will check back later. OBDULIO OROPEZA WASTE EXAMINER
--- NOTE | 2018-04-17 11:30 | NUR ---
UP TO CHAIR.
--- NOTE | 2018-04-17 12:00 | NUR ---
PHYSICAL THERAPY Patient was in supine position upon this FAMILY CONSULTANT arriving in patient's room with report of abdominal pain that is worse when bending at the waist. Patient's is present in room visiting. Patient agrees to therapy session. Patient was identified by name and . Patient performed supine to sitting at EOB transfer with MAX A X 2 due to patient's abdominal pain , which the nurse is aware of. Patient transferred STS with MOD A X 2. Patient SPT transfer to bedside chair with with MOD A X 2. Patient sat in bedside chair and performed seated bilateral LE ther ex in all planes of movement 2 x 10 reps each for strengthening in order to facilitate improving functional mobility. Patient was left in sitting position with call light within reach and LE raised. Patient's Nurse advised about patient's abdominal pain. Patient was 1:1 with this FAMILY CONSULTANT for 24 minutes total. Patient is recommended to SNF upon discharge. OBDULIO OROPEZA FAMILY CONSULTANT
--- NOTE | 2018-04-17 12:04 | NUR ---
MEDICATED WITH PO NORCO ORDERED PER PT REUEST FOR C/O DIFFUSE ABDOMINAL PAIN. DR ROSAS AWARE.
--- NOTE | 2018-04-17 12:24 | NUR ---
Retail Sales Lead in to see patient. He is currently short term at [facility] and would like to return there upon discharge. No family is present at this time.
--- NOTE | 2018-04-17 12:30 | NUR ---
REFUSING CT SPINE UNTIL AM.
--- NOTE | 2018-04-17 13:57 | NUR ---
MELITA SHIRLEY [id number] Please refer to the physician's history and physical for past medical history, comorbid conditions, and allergies. Diagnosis: COLON CANCER METASTASIZED TO LIVER, ANEMIA Enrike Score: 17,AT RISK WOUND DESCRIPTIONS: Location of the wound: coccyx Type of wound: stage 4 Thickness: Full Size: 2.8cm x 1.0cm x <0.1cm Tunneling: none Undermining: none Sinus Tract: none Presence of Exudate: Serosanguineous Amount: Light Color: red, yellow Odor: None Periwound Skin Appearance: Erythema Wound edges: approximated Pain (associated with wound): tender to touch How does patient state this happened? pt stated had for sometime now. Location of the wound: left buttocks Type of wound: stage 2 Thickness: Partial Size: 1.0cm x 0.4cm x <0.1cm Tunneling: none Undermining: none Sinus Tract: none Presence of Exudate: Serosanguineous Amount: None Color: Red Odor: None Periwound Skin Appearance: Erythema Wound edges: approximated Pain (associated with wound): tender to touch How does patient state this happened? stated had for sometime Surface the patient is resting on: Position Pro SKIN PREVENTION RECOMMENDATION: 1. Pressure redistribution support surface as appropriate 2. Elevate heels 3. Remove boots/TEDS every shift and reapply 4. Head of bed 30 degrees as tolerated 5. Assess nutrition and hydration 6. Manage moisture 7. Avoid the use of containment devices while in bed 8. Use absorptive products on surfaces limit layers of linens on bed 9. Turn and reposition every 1-2 hours in bed and every 1 hour in chair as tolerated 10. Weight shifts every 15 minutes while up in chair 11. Offloading with pillows or device to keep heels elevated off bed 12. Monitor skin at least every shift 13. Inspect under medical devices twice a day WOUND TREATMENT RECOMMENDATIONS: Consult Gina Cruz for possible debridement of the coccyx. Full thickness guidelines: Cleanse coccyx and left buttocks with nss and apply sureprep around the wound therahoney to wound bed cover with optifoam gentle. Wheelchair cushion when oob. Heel raiser pro boot while in bed. Recommend follow up for wound care in outpatient setting patient being discharge to another facility at this time.
--- NOTE | 2018-04-17 14:11 | NUR ---
PHYSICAL THERAPY Patient presented to therapy in sitting position in bedside chair with report of wanting to go back to bed and being tired. Patient performed sit to stand transfer to W/W with MIN A X 2. Patient ambulated with W/W and CGA X 1 with standard walker for and verbal cues for locking knees, upright posture, and pushing down on walker handles with hands for 30' X 1. Patient required rolling chair follow for safety. Patient transferred back to supine in bed with MIN A X 2. Patient was left in supine position in bed with head of bed elevated. Patient was 1:1 with this BILLIARD TABLE REPAIRER for 15 minutes total. OBDULIO OROPEZA BILLIARD TABLE REPAIRER
--- NOTE | 2018-04-17 15:43 | NUR ---
Medication effective for pain.
--- NOTE | 2018-04-17 21:00 | NUR ---
PATIENT GIVEN NORCO FOR DIFFUSE ABD PAIN PER PT REQUEST. WILL MONITOR FOR EFFECTIVENESS.
[2018-04-18] VITALS (12 sets, daily range): BP systolic 90–109; BP diastolic 54–78
[2018-04-18 06:36] LABS: HEMATOCRIT 28.5 % (42.0-52.0); HEMOGLOBIN 8.8 g/dl (14.0-18.0); MEAN CELL VOLUME 95.6 fl (80.0-94.0); MEAN CORPUSCULAR HGB 29.5 pg (27.0-31.0); MEAN CORPUSCULAR HGB CONC 30.9 g/dl (33.0-37.0); MEAN PLATELET VOLUME 10.7 fl (9.6-12.3); PLATELET COUNT AUTOMATED 208 10*3/uL (130-400); RED BLOOD COUNT 2.98 10*6/uL (4.50-5.90); RED CELL DISTRI WIDTH 17.8 % (0-14.5)
[2018-04-18 06:45] LABS: BUN 26 mg/dl (7-24); CHLORIDE 106 mmol/L (98-107); CREATININE 0.84 mg/dL (0.70-1.30); POTASSIUM 4.4 mmol/L (3.5-5.1); SODIUM 140 mmol/L (136-145)
[2018-04-18 06:55] LABS: DIGOXIN 1.02 ng/ml (0.8-2.0)
[2018-04-18 06:57] LABS: PLATELET SUFFICIENCY NORMAL (NORMAL); TOTAL CELLS COUNTED 100 #CELLS
[2018-04-18 06:58] LABS: POLYCHROMASIA SLIGHT
--- NOTE | 2018-04-18 08:00 | NUR ---
Patient resting quietly with no c/o discomfort. Respirations easy and regular. Vital signs stable. No overt distress. YAW WHALEN
--- NOTE | 2018-04-18 09:00 | NUR ---
Sneller Hand in to see patient. No new needs or request at this time. When medically stable he will be discharged to [facility]. interstate planner following.
--- NOTE | 2018-04-18 11:22 | NUR ---
Updates faxed to [facility] Attn: Ida.
--- NOTE | 2018-04-18 12:04 | NUR ---
MEDICATED WITH PO NORCO ORDERED PER PT REQUEST FOR C/O PAIN TO ABDOMEN AREA. UNABLE TO RATE.
--- NOTE | 2018-04-18 15:26 | NUR ---
PHYSICAL THERAPY Patient presented to therapy in supine position with head of bed elevated. Patient still complaining about abdominal pain. Patient's is present visiting. Patient agrees to therapy session. Patient was identified by name and . Patient performed supine to sitting at EOB with MAX A X 1 with verbal cues for rolling to side, pushing off bed rail with R hand L elbow, and putting LEs over EOB. Patient was unable to perfom this transfer himself and required MAX A X 1 to EOB. Patient has increased abdominal pain with hip flexion movements. Patient sat EOB with SBA holdign onto bed railing. Patient transferred STS with MOD A X 2 with V/Cs for pushing off bed with hands, and leaning forwards. Patient transferred to bedside chair with MAX A X 2 due to patient's knees buckling. Patient sat in bedside chair and performed ther ex to the bilateral LEs in all planes for strengthening in order to facilitate improving patient's functional mobility. Patient transferred STS from bedside chair with MOD A X 2 with verbal cues for pushing off armrests of chair with hands and scooting to edge of chair. Patient stood at Standard Walker and ambulated with CGA X 1 WITH ROLLING CHAIR FOLLOW, and other therapist handling the IV POLE and chair. Patient did require CONSTANT VERBAL CUES for locking knees, upright posture, and pushing down on walker with hands. Patient SHOULD ALWAYS LOCK KNEES when ambulating to prevent knees buckling with ambulation. Patient ambulated for a total of 22' x 1. Patient then transferred to supine in bed MAX A X 2. Patient was shifted up in bed with bedsheet with MAX A X 2. Patient was left in supine position in bed with head of bed elevated, call light withn reach, and bed alarm activated. Patient's tray table with lunch left in front of patient. Patient's present in room visiting. Patient was 1:1 with this PURCHASING INTERNSHIP for 30 minutes total. Patient is recommended for SNF upon discharge. OBDULIO OROPEZA PURCHASING INTERNSHIP
--- NOTE | 2018-04-18 18:00 | NUR ---
Patient resting quietly with no c/o discomfort. Respirations easy and regular. Vital signs stable. No overt distress. YAW WHALEN
--- NOTE | 2018-04-18 22:22 | NUR ---
CARDIZEM GTT SHUT OFF AFTER PO DOSE.
[2018-04-19] VITALS: BP 102/67
--- NOTE | 2018-04-19 | NUR ---
PT RESTING IN BED. NO ACUTE DISTRESS NOTED. RESPS EASY. AND REG. CALL LIGHT IN REACH.
[2018-04-19 06:32] LABS: HEMATOCRIT 28.9 % (42.0-52.0); MEAN CELL VOLUME 95.4 fl (80.0-94.0); MEAN CORPUSCULAR HGB 29.7 pg (27.0-31.0); MEAN CORPUSCULAR HGB CONC 31.1 g/dl (33.0-37.0); MEAN PLATELET VOLUME 10.7 fl (9.6-12.3); PLATELET COUNT AUTOMATED 192 10*3/uL (130-400); RED BLOOD COUNT 3.03 10*6/uL (4.50-5.90); RED CELL DISTRI WIDTH 17.9 % (0-14.5); WHITE BLOOD COUNT 9.1 10*3/uL (4.8-10.8)
[2018-04-19 07:19] LABS: TOTAL CELLS COUNTED 100 #CELLS
[2018-04-19 07:20] LABS: PLATELET SUFFICIENCY NORMAL (NORMAL); SCHISTOCYTES FEW
[2018-04-19 07:21] LABS: POLYCHROMASIA SLIGHT
[2018-04-19 08:00] VITALS: BP 100/66
--- NOTE | 2018-04-19 08:53 | NUR ---
MELITA SHIRLEY [id number] Please refer to the physician's history and physical for past medical history, comorbid conditions, and allergies. Diagnosis: COLON CANCER METASTASIZED TO LIVER, ANEMIA Enrike Score: 16,AT RISK WOUND DESCRIPTIONS: Location of the wound: left buttocks distal Type of wound: stage 2 Thickness: Partial Size: 0.6cm x 1.0cm x 0.1cm Tunneling: none Undermining: none Sinus Tract: none Presence of Exudate: Serosanguineous Amount: Light Color: Red Odor: None Periwound Skin Appearance: Normal Wound edges: approximated Pain (associated with wound): none at time of assessment How does patient state this happened? pt was unsure he had this area it was found during bedside debridement Surface the patient is resting on: Position Pro SKIN PREVENTION RECOMMENDATION: 1. Pressure redistribution support surface as appropriate 2. Elevate heels 3. Remove boots/TEDS every shift and reapply 4. Head of bed 30 degrees as tolerated 5. Assess nutrition and hydration 6. Manage moisture 7. Avoid the use of containment devices while in bed 8. Use absorptive products on surfaces limit layers of linens on bed 9. Turn and reposition every 1-2 hours in bed and every 1 hour in chair as tolerated 10. Weight shifts every 15 minutes while up in chair 11. Offloading with pillows or device to keep heels elevated off bed 12. Monitor skin at least every shift 13. Inspect under medical devices twice a day WOUND TREATMENT RECOMMENDATIONS:
--- NOTE | 2018-04-19 09:00 | NUR ---
Supervisor [employer] in to see patient. No new needs or request at this time. When medically stable he will be discharged to [facility]. convention planner following.
[2018-04-19] MEDS ORDERED: COREG12.5 M1 PO (11:49)
[2018-04-19] MEDS ORDERED: DILTIAZEM 24HR120 MG PO (11:49)
[2018-04-19] MEDS ORDERED: ALPRAZOLAM0.25 M2 PO (11:59)
[2018-04-19] MEDS ORDERED: HYDROCODONE-AC1 EAC2 PO (11:59)
[2018-04-19 12:00] VITALS: BP 100/65
--- NOTE | 2018-04-19 12:41 | NUR ---
PATIENT REQUESTING PAIN MEDICATION FOR ABDOMINAL PAIN. NORCO ADMINISTERED PRESCRIBED. WILL MONITOR FOR EFFECTIVENSS.
--- NOTE | 2018-04-19 13:18 | NUR ---
PHYSICAL THERAPY CO-SIGN I approve of the Phyical Therapy notes written above. MILADYS LANDA PT
--- NOTE | 2018-04-19 13:32 | NUR ---
Patient discharged to [facility], transportation scheduled for 5:30 with [place]. [place], railroad dining car steward/stewardess notified.
--- NOTE | 2018-04-19 13:41 | NUR ---
PATIENT RESTING COMFORTABLY AT THIS TIME WITH EYES CLOSED. WILL CONTINUE TO MONITOR
--- NOTE | 2018-04-19 15:47 | NUR ---
WOUND DISCHARGE PICTURES TAKEN AND WOUND CARE DONE ORDERED.
--- NOTE | 2018-04-19 17:45 | NUR ---
MEDIPORT ACCESS REMOVED AND TELEMETRY REMOVED FROM PATIENT FOR DISCHARGE.
--- NOTE | 2018-04-19 17:45 | NUR ---
Discharge instructions reviewed with patient/family. Patient receptive and verbalizes understanding. Follow-up care arranged. Written instructions given to patient/family. PATIENT DISCHARGED WITH [facility]. CRESENCIO VÁSQUEZ
--- NOTE | 2018-04-19 17:48 | NUR ---
NURSE TO NURSE REPORT CALLED TO [facility]
== END 2018-04-19 17:48 | disposition other institution (70) | DRG 356 ==
LOC: ED 11:10 → 5E 15:42 → EDHOLD 15:42 → 5E 16:17
PROVIDERS: Emergency Medicine; ADMIT Internal Medicine
PROC: 30233N1 Transfusion of Nonautologous Red Blood Cells into Peripheral Vein, Percutaneous Approach (ICD-10-PCS; principal; 2018-04-15)
PROC: 0JB70ZZ Excision of Back Subcutaneous Tissue and Fascia, Open Approach (ICD-10-PCS; 2018-04-18)
PROC: 0JB90ZZ Excision of Buttock Subcutaneous Tissue and Fascia, Open Approach (ICD-10-PCS; 2018-04-18)
DX: C18.9 Malignant neoplasm of colon, unspecified (principal); L89.154 Pressure ulcer of sacral region, stage 4; L89.323 Pressure ulcer of left buttock, stage 3; C79.51 Secondary malignant neoplasm of bone; C78.7 Secondary malignant neoplasm of liver and intrahepatic bile duct; I50.22 Chronic systolic (congestive) heart failure; D62 Acute posthemorrhagic anemia; I48.2 Chronic atrial fibrillation; I95.9 Hypotension, unspecified; E03.9 Hypothyroidism, unspecified; E78.2 Mixed hyperlipidemia; I25.10 Atherosclerotic heart disease of native coronary artery without angina pectoris; R62.7 Adult failure to thrive; I11.0 Hypertensive heart disease with heart failure; F41.1 Generalized anxiety disorder; N40.1 Benign prostatic hyperplasia with lower urinary tract symptoms; L89.322 Pressure ulcer of left buttock, stage 2; R33.8 Other retention of urine; E86.0 Dehydration; D63.8 Anemia in other chronic diseases classified elsewhere; Z79.899 Other long term (current) drug therapy; Z79.1 Long term (current) use of non-steroidal anti-inflammatories (NSAID); Z92.21 Personal history of antineoplastic chemotherapy; Z88.8 Allergy status to other drugs, medicaments and biological substances; Z95.5 Presence of coronary angioplasty implant and graft; Z82.49 Family history of ischemic heart disease and other diseases of the circulatory system